=== PATIENT | female | born 1975 | race Caucasian/White ===

== ENCOUNTER → 2017-03-23 | Outpatient (CLI) | payer MEDICARE, OTHER ==
--- NOTE | 2017-03-23 13:41 | XR ---
EXAMINATION TYPE: XR Hip Complete LT DATE OF EXAM: 03/23/2017 1:17 PM COMPARISON: NONE HISTORY: Left hip pain TECHNIQUE: 2 views submitted FINDINGS: There is no evidence of erosive change or acute fracture. Mild hypertrophic change of the acetabulum results in mild narrowing of the superior compartment of t he hip. Diffuse osteopenia noted. IMPRESSION: 1. No evidence of acute fracture or dislocation. 2. Post arthritic changes. Correlate for femoral acetabular impingement.
== END ==
LOC: RADXRMAIN 12:54
PROVIDERS: ATTEND Family Medicine
DX: M16.12 Unilateral primary osteoarthritis, left hip (principal)
CPT/HCPCS: 73502

== ENCOUNTER → 2017-04-13 | Outpatient (CLI) | payer MEDICARE, OTHER ==
--- NOTE | 2017-04-13 16:31 | BD ---
EXAMINATION TYPE: MG DEXA axial skeleton. DATE OF EXAM: 04/13/2017 COMPARISON: NONE CLINICAL HISTORY: Osteopenia per order. Height: 5 FT 6 1/4 IN Weight: 137 FRAX RISK QUESTIONS: Alcohol (3 or more units per day): NO Family History (Parent hip fracture): NO Glucocorticoids (More than 3mos): NO (Ex: prednisone, prednisolone, methylprednisolone, dexamethasone, and hydrocortisone). History of Fracture in Adulthood: YES Secondary Osteoporosis: 1. Type 1 Diabetes: NO 2. Hyperthyroidism: NO 3. Menopause before 45: NO 4. Malnutrition: NO 5. 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 Bone mineral density as measured about the Lumbar spine is: ----- L1-L4(G/cm2): 1.151 T Score Values are as follows: ----- L2: -0.2 ----- L3: 0.0 ----- L4: -0.7 ----- L1-L4: -0.2 BASELINE Bone mineral density about the R hip (g/cm2): 0.582 Bone mineral density about the L hip (g/cm2): 0.638 T Score values are as follows: -----R Neck: -2.5 -----L Neck: -2.1 -----R Total: -1.9 -----L Total: -2.4 BASELINE IMPRESSION: Osteopenia in the bilateral hips. (T Score between -2.5 and -1 as noted by T score values)There is sl ightly increased risk of fracture and the patient may be considered for treatment. Re-Screen 2-5 year s. NOTE: T-SCORE=SD OF THE YOUNG ADULT MEAN.
== END | disposition home or self-care (01) ==
LOC: RADBDWWP 07:36
PROVIDERS: ATTEND Family Medicine
DX: M85.852 Other specified disorders of bone density and structure, left thigh (principal); M85.851 Other specified disorders of bone density and structure, right thigh
CPT/HCPCS: 77080

== ENCOUNTER → 2019-03-05 | Outpatient (CLI) | payer MEDICARE, OTHER ==
--- NOTE | 2019-03-05 16:10 | CT ---
EXAMINATION TYPE: CT brain wo con DATE OF EXAM: 03/05/2019 COMPARISON: CT brain September 22, 2016 HISTORY: headaches, dizziness CT DLP: 1168 mGycm. Automated Exposure Control for Dose Reduction was Utilized. TECHNIQUE: CT scan of the head is performed without contrast. FINDINGS: There is redemonstration of left parietal walker hole with TEACHING ASSOCIATE shunt catheter terminating ne ar level of foramen of Monro. No acute intracranial hemorrhage or midline shift is seen. Area of ence phalomalacia high right frontal parietal region is again seen. Ventricular size is stable without hyd rocephalus. Visualized sinuses are clear and the globes are intact bilaterally. IMPRESSION: No significant change from 2016 CT.
== END | disposition home or self-care (01) ==
LOC: RADCTMAIN 15:37
PROVIDERS: ATTEND Neurological Surgery
DX: G91.0 Communicating hydrocephalus (principal); R10.12 Left upper quadrant pain
CPT/HCPCS: 70450

== ENCOUNTER 2019-04-09 15:33 | Emergency (ER) | payer MEDICARE, OTHER ==
[2019-04-09 15:49] VITALS: RESP 18; TEMP 98.4
[2019-04-09] MEDS ORDERED: METOCLOPRAMIDE 5 MG/ML 2 ML VIAL IVP STA (16:27)
[2019-04-09] MEDS ORDERED: LORazepam 2 MG/ML INJ IV STA (16:28)
--- NOTE | 2019-04-09 16:32 | ED ---
General Adult HPI - General Chief complaint: Nausea/Vomiting/Diarrhea Stated complaint: shunt problem Time Seen by Provider: 04/09/19 16:18 Source: patient, family, RN notes reviewed Mode of arrival: ambulatory Limitations: no limitations - History of Present Illness Initial comments: Patient is a pleasant 44-year-old female presenting to the emergency department with complaints of nausea. Onset of symptoms was yesterday. Patient has had some headaches however they are mild and are mild at this time. Patient is concerned there could be a problem with her shunt. Patient states she has had near vomiting however not actually vomited. Patient has some nausea and upset stomach. Not abdominal pain. Patient states headache is very mild and more discomfort than true pain. Patient states she does have some blurry vision. Patient states symptoms are similar to previous problems she has had with her shunt, last was placed 1 year ago. Patient has previously had her care at [facility] however does have a new neurosurgeon at [facility]. He has seen her however not done surgery on her previously. Patient states she does have history of hydrocephalus from premature . - Related Data Home Medications Medication Instructions Recorded Confirmed Acyclovir [Zovirax] 400 mg PO TID 01/20/15 04/09/19 ALPRAZolam [Xanax] 2 mg PO HS 04/09/19 04/09/19 Butalb/APAP/Caff 50-325-40Mg 1 tab PO TID PRN 04/09/19 04/09/19 [Fioricet 50-325-40] Ondansetron HCl [Zofran] 4 mg PO Q8H PRN 04/09/19 04/09/19 Allergies Allergy/AdvReac Type Severity Reaction Status Date / Time No Known Allergies Allergy Verified 04/09/19 16:20 Review of Systems ROS Statement: Those systems with pertinent positive or pertinent negative responses have been documented in the HPI. ROS Other: All systems not noted in ROS Statement are negative. Constitutional: Denies: fever, chills Eyes: Reports: as per HPI. Denies: eye pain ENT: Denies: ear pain Respiratory: Denies: cough, dyspnea Cardiovascular: Denies: chest pain Endocrine: Denies: fatigue Gastrointestinal: Reports: nausea. Denies: abdominal pain, vomiting Genitourinary: Denies: urgency Musculoskeletal: Denies: back pain Skin: Denies: rash Neurological: Reports: as per HPI. Denies: weakness, confusion Psychiatric: Reports: anxiety Past Medical History Past Medical History: CVA/TIA, Memory Impairment, Seizure Disorder Additional Past Medical History / Comment(s): see Dr Broussard H&P for cardiac history. 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 In 2000 she had another surgery involving the shunt and a vessel was nicked causing left side stroke symptoms. She has had many shunt surgeries Past Anesthesia/Blood Transfusion Reactions: Postoperative Nausea & Vomiting (PONV) Past Psychological History: Anxiety, Depression, Panic Disorder Smoking Status: Former smoker Past Alcohol Use History: None Reported Past Drug Use History: None Reported General Exam Limitations: no limitations General appearance: alert, in no apparent distress Head exam: Present: atraumatic, normocephalic Eye exam: Present: normal appearance, PERRL, EOMI. Absent: nystagmus Expanded Posterior chamber: Normal Inspection: Bilateral ENT exam: Present: normal oropharynx Neck exam: Present: normal inspection. Absent: meningismus Respiratory exam: Present: normal lung sounds bilaterally Cardiovascular Exam: Present: regular rate, normal rhythm GI/Abdominal exam: Present: soft. Absent: tenderness Neurological exam: Present: alert, oriented X3, CN II-XII intact (Except for mild weakness with left shoulder shrug) Expanded Neurological exam: Present: other (Patient states all weakness notices on exam are chronic and unchanged.) Speech: Present: fluid speech Cranial nerves: EOM's Intact: Normal, Facial Sensation: Normal Sensory exam: Upper Extremity Light Touch: Normal, Lower Extremity Light Touch: Normal Motor strength exam: RUE: 5, LUE: 4, RLE: 5, LLE: 4 Eye Response: (4) open spontaneously Motor Response: (6) obeys commands Verbal Response: (5) oriented Psychiatric exam: Present: normal affect, normal mood Skin exam: Present: normal color Course Vital Signs 04/09/19 04/09/19 04/09/19 15:45 17:07 17:51 Temperature 98.4 F Pulse Rate 82 74 78 Respiratory 18 18 18 Rate Blood Pressure 124/82 102/70 102/60 O2 Sat by Pulse 98 97 100 Oximetry Medical Decision Making - Lab Data Result diagrams: 04/09/19 16:36 04/09/19 16:36 Lab Results 04/09/19 04/09/19 04/09/19 Range/Units 16:36 16:36 16:36 WBC 5.3 (3.8-10.6) k/uL RBC 4.85 (3.80-5.40) m/uL Hgb 14.8 (11.4-16.0) gm/dL Hct 45.9 (34.0-46.0) % MCV 94.7 (80.0-100.0) fL MCH 30.4 (25.0-35.0) pg MCHC 32.2 (31.0-37.0) g/dL RDW 14.6 (11.5-15.5) % Plt Count 231 (150-450) k/uL Neutrophils % 60 % Lymphocytes % 29 % Monocytes % 6 % Eosinophils % 3 % Basophils % 1 % Neutrophils # 3.1 (1.3-7.7) k/uL Lymphocytes # 1.5 (1.0-4.8) k/uL Monocytes # 0.3 (0-1.0) k/uL Eosinophils # 0.2 (0-0.7) k/uL Basophils # 0.0 (0-0.2) k/uL PT 9.9 (9.0-12.0) sec INR 0.9 (<1.2) APTT 25.3 (22.0-30.0) sec Sodium 143 (137-145) mmol/L Potassium 3.7 (3.5-5.1) mmol/L Chloride 108 H (98-107) mmol/L Carbon Dioxide 26 (22-30) mmol/L Anion Gap 9 mmol/L BUN 5 L (7-17) mg/dL Creatinine 0.62 (0.52-1.04) mg/dL Est GFR (CKD-EPI)AfAm >90 (>60 ml/min/1.73 sqM) Est GFR (CKD-EPI)NonAf >90 (>60 ml/min/1.73 sqM) Glucose 113 H (74-99) mg/dL Calcium 9.6 (8.4-10.2) mg/dL Total Bilirubin 0.6 (0.2-1.3) mg/dL AST 18 (14-36) U/L ALT 13 (9-52) U/L Alkaline Phosphatase 57 (38-126) U/L Total Protein 7.3 (6.3-8.2) g/dL Albumin 4.4 (3.5-5.0) g/dL Amylase 42 (30-110) U/L Lipase 82 (23-300) U/L - Radiology Data Radiology results: report reviewed (Computed tomography scan of the brain shows old encephalomalacia right parietal lobe. Unchanged. No hydrocephalus. No acute intercranial abnormality.), image reviewed (Chest x-ray shows normal chest. Shunt noted without twisting. KUB shows nonacute abdomen. Skull x-ray reveals no acute process) Disposition Clinical Impression: Nausea Disposition: HOME SELF-CARE Condition: Stable Instructions (If sedation given, give patient instructions): Acute Nausea and Vomiting (ED) Additional Instructions: Patient reevaluated and resting comfortably in bed. Patient states she feels much better than when she arrived. Patient and family updated on results. Kristopher pereyra requests discharge home. Patient is advised close follow-up with her neurosurgeon. She states she arty has an appointment scheduled for Sunday. Patient is advised to follow-up sooner if symptoms worsen or return. Is patient prescribed a controlled substance at d/c from ED?: No Referrals: Yaniv Mac DO [Primary Care Provider] - 1-2 days Time of Disposition: 18:34
[2019-04-09 16:49] LABS: Basophils % (A) 1 %; Eosinophils # (A) 0.2 k/uL (0-0.7); Eosinophils % (A) 3 %; HCT 45.9 % (34.0-46.0); HGB 14.8 gm/dL (11.4-16.0); Lymphocytes # (A) 1.5 k/uL (1.0-4.8); Lymphocytes % (A) 29 %; MCH 30.4 pg (25.0-35.0); MCHC 32.2 g/dL (31.0-37.0); MCV 94.7 fL (80.0-100.0); Mean Platelet Volume 8.1; Monocytes # (A) 0.3 k/uL (0-1.0); Monocytes % (A) 6 %; Neutrophils # (A) 3.1 k/uL (1.3-7.7); Neutrophils % (A) 60 %; Platelet Count 231 k/uL (150-450); RBC 4.85 m/uL (3.80-5.40); RDW 14.6 % (11.5-15.5); WBC 5.3 k/uL (3.8-10.6)
[2019-04-09 16:56] LABS: INR 0.9 (<1.2); Partial Thromboplastin Time 25.3 sec (22.0-30.0); Prothrombin Time 9.9 sec (9.0-12.0)
[2019-04-09 16:58] LABS: ALT 13 U/L (9-52); AST 18 U/L (14-36); Albumin 4.4 g/dL (3.5-5.0); Alkaline Phosphatase 57 U/L (38-126); Amylase 42 U/L (30-110); Anion Gap 9 mmol/L; Blood Urea Nitrogen 5 mg/dL (7-17); Calcium 9.6 mg/dL (8.4-10.2); Carbon Dioxide 26 mmol/L (22-30); Chloride 108 mmol/L (98-107); Glucose 113 mg/dL (74-99); Lipase 82 U/L (23-300); Potassium 3.7 mmol/L (3.5-5.1); Sodium 143 mmol/L (137-145); Total Bilirubin 0.6 mg/dL (0.2-1.3); Total Protein 7.3 g/dL (6.3-8.2)
--- NOTE | 2019-04-09 17:57 | CT ---
EXAMINATION TYPE: CT brain wo con DATE OF EXAM: 04/09/2019 COMPARISON: 03/05/2019 HISTORY: Nausea. Evaluation of shunt. CT DLP: 1164.4 mGycm. Automated Exposure Control for Dose Reduction was Utilized. TECHNIQUE: CT scan of the head is performed without contrast. FINDINGS: There is left side ventricular shunt catheter with the tip in the midline. There is no hydr ocephalus. There is large area of hypodensity in the white matter right parietal lobe consistent with old infarct. There is no midline shift. There is no sign of intracranial hemorrhage. The calvarium i s intact. There is apparent old right side craniotomy defect. IMPRESSION: Old encephalomalacia right parietal lobe white matter and christian matter unchanged. No acute intracrania l abnormality. No hydrocephalus.
--- NOTE | 2019-04-09 18:03 | XR ---
EXAMINATION TYPE: XR chest 1V DATE OF EXAM: 04/09/2019 COMPARISON: NONE HISTORY: Abdominal pain TECHNIQUE: Single frontal view of the chest is obtained. FINDINGS: Heart and mediastinum are normal. Lungs are clear. Costophrenic angles are clear. There is ventricular peritoneal shunt catheter noted on the left side. IMPRESSION: Normal chest
--- NOTE | 2019-04-09 18:04 | XR ---
EXAMINATION TYPE: XR KUB DATE OF EXAM: 04/09/2019 COMPARISON: NONE HISTORY: Abdominal pain TECHNIQUE: 2 views upright FINDINGS: There is no sign of intestinal obstruction or pneumoperitoneum. Fecal pattern is normal. Th ere is IUD noted. There are clips from cholecystectomy. There is ventricular peritoneal shunt cathete r noted. There are no pathologic calcifications over the kidneys. Lung bases are clear. IMPRESSION: Nonacute abdomen.
[2019-04-09 18:54] VITALS: BP 102/70; PULSE 72
== END 2019-04-09 18:52 | disposition home or self-care (01) ==
LOC: EC 15:33
DX: R11.0 Nausea (principal); R51 Headache; F41.0 Panic disorder [episodic paroxysmal anxiety]; F32.9 Major depressive disorder, single episode, unspecified; Z79.899 Other long term (current) drug therapy; Z86.73 Personal history of transient ischemic attack (TIA), and cerebral infarction without residual deficits; Z87.891 Personal history of nicotine dependence; Z98.2 Presence of cerebrospinal fluid drainage device
CPT/HCPCS: 36415; 80053; 82150; 83690; 85025; 85610; 85730; 70250; 71045; 74018; 70450; 99284; 96374; 96375; J2060; J2765

== ENCOUNTER 2019-04-22 16:25 | Emergency (ER) | payer MEDICARE, OTHER ==
[2019-04-22 16:43] VITALS: BP 121/86; PULSE 83; RESP 16; TEMP 98.8
--- NOTE | 2019-04-22 17:49 | XR ---
EXAMINATION TYPE: XR KUB DATE OF EXAM: 04/22/2019 COMPARISON: 04/09/2019 HISTORY: Constipation TECHNIQUE: 2 views upright FINDINGS: There is no sign of intestinal obstruction or pneumoperitoneum. There is ventricular perito luis shunt catheter noted. There is IUD noted. Fecal pattern is normal. There are no pathologic calci fications over the kidneys. There are clips from cholecystectomy. Lung bases are clear. IMPRESSION: Nonacute abdomen. No adverse change compared to old exam. No sign of constipation.
--- NOTE | 2019-04-22 18:18 | ED ---
General Adult HPI - General Chief complaint: Abdominal Pain Stated complaint: abd pain/constipation/nausea Time Seen by Provider: 04/22/19 17:13 Source: patient, RN notes reviewed, old records reviewed Mode of arrival: ambulatory Limitations: no limitations - History of Present Illness Initial comments: 44-year-old female presents for evaluation of nausea and abdominal pain. Patient has dull with nausea for many years. She has history of previous SHIPPING CLERK shunt. She's had recent evaluation by neurosurgery. She is complaining of abdominal pain and nausea which is chronic in nature. She was seen by her certified medical technician assistant 3 days ago, prescribed Colace, MiraLAX and magnesium citrate. She's had liquid stool since this time. She states her last formed bowel movement was several weeks ago. Denies fever or chills. Patient is predominantly left upper quadrant. - Related Data Home Medications Medication Instructions Recorded Confirmed Acyclovir [Zovirax] 400 mg PO TID 01/20/15 04/22/19 ALPRAZolam [Xanax] 2 mg PO HS 04/09/19 04/22/19 Ondansetron HCl [Zofran] 4 mg PO Q8H PRN 04/09/19 04/22/19 Docusate [Colace] 100 mg PO DAILY 04/22/19 04/22/19 Magnesium Citrate [Citrate of 5 ml PO DAILY 04/22/19 04/22/19 Magnesia] Polyethylene Glycol 3350 [Miralax] 17 gm PO DAILY 04/22/19 04/22/19 Previous Rx's Medication Instructions Recorded Metoclopramide [Reglan] 5 mg PO TID PRN #21 tab 04/22/19 Allergies Allergy/AdvReac Type Severity Reaction Status Date / Time No Known Allergies Allergy Verified 04/22/19 17:12 Review of Systems ROS Statement: Those systems with pertinent positive or pertinent negative responses have been documented in the HPI. ROS Other: All systems not noted in ROS Statement are negative. Past Medical History Past Medical History: CVA/TIA, Memory Impairment, Seizure Disorder Additional Past Medical History / Comment(s): see Dr Broussard H&P for cardiac history. Last seizure was 2003. chronic constipation. 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 In 2000 she had another surgery involving the shunt and a vessel was nicked causing left side stroke symptoms. She has had many shunt surgeries Past Anesthesia/Blood Transfusion Reactions: Postoperative Nausea & Vomiting (PONV) Past Psychological History: Anxiety, Depression, Panic Disorder Smoking Status: Former smoker Past Alcohol Use History: None Reported Past Drug Use History: None Reported General Exam Limitations: no limitations General appearance: alert, in no apparent distress Head exam: Present: atraumatic, normocephalic Eye exam: Present: normal appearance ENT exam: Present: normal exam, mucous membranes moist Neck exam: Present: normal inspection. Absent: tenderness, meningismus Respiratory exam: Present: normal lung sounds bilaterally. Absent: respiratory distress, wheezes Cardiovascular Exam: Present: regular rate, normal rhythm GI/Abdominal exam: Present: soft. Absent: distended, tenderness, guarding, rebound, rigid Extremities exam: Present: normal inspection, normal capillary refill. Absent: pedal edema Neurological exam: Present: alert, oriented X3 Psychiatric exam: Present: normal affect, normal mood Skin exam: Present: warm, dry, intact. Absent: cyanosis, diaphoretic Course Vital Signs 04/22/19 16:39 Temperature 98.8 F Pulse Rate 83 Respiratory 16 Rate Blood Pressure 121/86 O2 Sat by Pulse 97 Oximetry Medical Decision Making - Medical Decision Making X-ray obtained, there is no constipation, no obstruction. Patient has nonsurgical abdomen. She does have good outpatient follow-up with gastroenterology. She has a computed tomography scan of the abdomen scheduled. She will maintain this appointment. Disposition Clinical Impression: Nausea, Abdominal pain Disposition: HOME SELF-CARE Condition: Good Instructions (If sedation given, give patient instructions): Abdominal Pain (ED) Prescriptions: Metoclopramide [Reglan] 5 mg PO TID PRN #21 tab PRN Reason: Nausea Is patient prescribed a controlled substance at d/c from ED?: No Referrals: Yaniv Mac DO [Primary Care Provider] - 1-2 days Time of Disposition: 18:17
== END 2019-04-22 18:56 | disposition home or self-care (01) ==
LOC: EC 16:25
DX: R10.9 Unspecified abdominal pain (principal); R11.0 Nausea; F41.0 Panic disorder [episodic paroxysmal anxiety]; Z79.899 Other long term (current) drug therapy; Z87.891 Personal history of nicotine dependence; Z98.2 Presence of cerebrospinal fluid drainage device; Z86.73 Personal history of transient ischemic attack (TIA), and cerebral infarction without residual deficits
CPT/HCPCS: 74018; 99284

== ENCOUNTER → 2019-07-17 | Outpatient (CLI) | payer MEDICARE, OTHER ==
--- NOTE | 2019-07-17 14:42 | US ---
EXAMINATION TYPE: US pelvis complete transvag DATE OF EXAM: 07/17/2019 COMPARISON: NONE CLINICAL HISTORY: R10.2 Pelvic pain, Z97.5 IUD placement. pt has left sided stroke and foot palsy TECHNIQUE: . Transabdominal sonographic images of the pelvis were acquired. Transvaginal sonographi c images were medically necessary to better assess the following anatomy: adnexa Date of LMP: 5 years ago pt has Mirena EXAM MEASUREMENTS: Uterus: 7.7 x 3.5 x 5.1 cm Endometrial Stripe: 0.2 cm Right Ovary: 3.1 x 2.7 x 3.0 cm Left Ovary: 2.2 x x1.6 x 1.3 cm 1. Uterus: nabothian cyst , IUD in mid upper uterus 2. Endometrium: wnl 3. Right Ovary: large cyst 2.5 x 2.3 x 3.1 cm can not see ovary separate 4. Left Ovary: wnl . 5. Bilateral Adnexa: rt cyst 6. Posterior cul-de-sac: wnl Anteverted uterus. IUD fell satisfactory in position. Incidental nabothian cyst in cervix. No free fl uid in pelvic cul-de-sac. There is 3.1 cm right ovarian cystic lesion which is not completely anechoic with increased through t ransmission and imperceptible rosario. It is more anechoic on transabdominal investigation with possibl e thin septa or dependent debris. IMPRESSION: Satisfactory positioning of metallic IUD. Nonsimple cyst right ovary, consider ultrasound follow-up in 6 weeks' time to reassess.
== END | disposition home or self-care (01) ==
LOC: RADUSWWP 10:51
PROVIDERS: ATTEND Obstetrics & Gynecology
DX: N83.291 Other ovarian cyst, right side (principal); Z97.5 Presence of (intrauterine) contraceptive device
CPT/HCPCS: 76830; 76856

== ENCOUNTER → 2019-09-11 | Outpatient (CLI) | payer MEDICARE, OTHER ==
[2019-09-11 15:16] LABS: Basophils # (A) 0.1 k/uL (0-0.2); Basophils % (A) 1 %; Eosinophils # (A) 0.2 k/uL (0-0.7); Eosinophils % (A) 3 %; HGB 14.6 gm/dL (11.4-16.0); Lymphocytes % (A) 29 %; MCH 30.9 pg (25.0-35.0); MCHC 31.7 g/dL (31.0-37.0); MCV 97.7 fL (80.0-100.0); Mean Platelet Volume 7.5; Monocytes # (A) 0.5 k/uL (0-1.0); Monocytes % (A) 7 %; Neutrophils % (A) 58 %; Platelet Count 223 k/uL (150-450); RBC 4.71 m/uL (3.80-5.40); RDW 12.6 % (11.5-15.5); WBC 6.9 k/uL (3.8-10.6)
[2019-09-11 15:29] LABS: African American GFR (CKD) >90 (>60 ml/min/1.73 sqM); Anion Gap 8 mmol/L; Blood Urea Nitrogen 7 mg/dL (7-17); Calcium 9.2 mg/dL (8.4-10.2); Carbon Dioxide 25 mmol/L (22-30); Chloride 108 mmol/L (98-107); Glucose 95 mg/dL (74-99); Sodium 141 mmol/L (137-145)
== END | disposition home or self-care (01) ==
LOC: LABPAT 14:05
PROVIDERS: ATTEND Obstetrics & Gynecology
DX: Z01.812 Encounter for preprocedural laboratory examination (principal)
CPT/HCPCS: 36415; 80048; 85025

== ENCOUNTER 2019-09-15 05:45 | Observation (INO) | payer MEDICARE, OTHER ==
[2019-09-15] MEDS ORDERED: HYDROmorphone 0.5 MG/0.5 ML SYRINGE IVP PRN (05:47)
[2019-09-15] MEDS ORDERED: DEXAMETHASONE SOD PHOSPHATE 10 MG/ML 1 ML VIAL IV ONE (05:47)
[2019-09-15] MEDS ORDERED: METOCLOPRAMIDE 5 MG/ML 2 ML VIAL IVP PRN ×2 (05:47→09:36)
[2019-09-15] MEDS ORDERED: ONDANSETRON 4 MG/2 ML VIAL IVP ONE (05:47)
[2019-09-15] MEDS ORDERED: LIDOCAINE 1% 20 ML VIAL (10MG/ML) FOR IV START INTRADERMA PRN (05:47)
[2019-09-15] MEDS ORDERED: LACTATED RINGERS 1,000 ML IV SCH (05:47)
--- NOTE | 2019-09-15 06:53 | P.HPOB ---
History of Present Illness H&P Date: 09/15/19 Chief Complaint: Menorrhagia and pelvic pain 44-year-old presents for total laparoscopic hysterectomy with da Janae and diagnostic cystoscopy. Review of Systems All systems: negative Constitutional: Denies chills, Denies fever Eyes: denies blurred vision, denies pain Ears, nose, mouth and throat: Denies headache, Denies sore throat Cardiovascular: Denies chest pain, Denies shortness of breath Respiratory: Denies cough Gastrointestinal: Denies abdominal pain, Denies diarrhea, Denies nausea, Denies vomiting Genitourinary: Denies dysuria, Denies hematuria Musculoskeletal: Denies myalgias Integumentary: Denies pruritus, Denies rash Neurological: Denies numbness, Denies weakness Psychiatric: Denies anxiety, Denies depression Endocrine: Denies fatigue, Denies weight change Past Medical History Past Medical History: CVA/TIA (She had a stroke after placement of her shunt), Memory Impairment, Seizure Disorder (Last seizure was 2003) History of Any Multi-Drug Resistant Organisms: None Reported, Other MDRO Past Surgical History: Section, Cholecystectomy, Tubal Ligation Additional Past Surgical History / Comment(s): 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 In 2000 she had another surgery involving the shunt and a vessel was nicked causing left side stroke symptoms. She has had many shunt surgeries Past Anesthesia/Blood Transfusion Reactions: Postoperative Nausea & Vomiting (PONV) Additional Past Anesthesia/Blood Transfusion Reaction / Comment(s): no hx blood transfusion Smoking Status: Former smoker Past Alcohol Use History: None Reported Past Drug Use History: None Reported - Past Family History Mother Family Medical History: Cancer Additional Family Medical History / Comment(s): breast CA Medications and Allergies Home Medications Medication Instructions Recorded Confirmed Type Acyclovir [Zovirax] 400 mg PO TID 01/20/15 09/15/19 History ALPRAZolam [Xanax] 2 mg PO TID PRN 04/09/19 09/15/19 History Ondansetron HCl [Zofran] 4 mg PO Q8H PRN 04/09/19 09/15/19 History Docusate [Colace] 100 mg PO DAILY PRN 04/22/19 09/15/19 History Metoclopramide [Reglan] 5 mg PO TID PRN #21 tab 04/22/19 09/15/19 Rx Polyethylene Glycol 3350 [Miralax] 17 gm PO DAILY 04/22/19 09/15/19 History Ibuprofen 800 mg PO TID PRN 09/11/19 09/15/19 History Allergies Allergy/AdvReac Type Severity Reaction Status Date / Time latex Allergy aragon skin Verified 09/15/19 06:31 Exam Osteopathic Statement: *. No significant issues noted on an osteopathic structural exam other than those noted in the History and Physical/Consult. Vital Signs Temp Pulse Resp BP Pulse Ox 09/15/19 06:30 98.4 F 78 15 109/79 97 Heart: Regular rate and rhythm Lungs: Clear to auscultation bilaterally Abdomen: Soft, nontender Extremities: Negative Homans sign; chronic weakness on the left side Assessment and Plan (1) Menorrhagia Current Visit: Yes Status: Acute Code(s): N92.0 - EXCESSIVE AND FREQUENT MENSTRUATION WITH REGULAR CYCLE SNOMED Code(s): 925535287 (2) Pelvic pain Current Visit: Yes Status: Acute Code(s): R10.2 - PELVIC AND PERINEAL PAIN SNOMED Code(s): 88972929 Plan: 1. Total laparoscopic hysterectomy with da Janae and diagnostic cystoscopy.
[2019-09-15] MEDS ORDERED: MIDAZOLAM 2 MG/2 ML VIAL IVP ONE (07:22)
[2019-09-15] MEDS: fentaNYL (PF) 50 MCG/ML 2 ML AMP IVP ONE ×3 (07:23→09:32)
[2019-09-15] MEDS ORDERED: LIDOCAINE 1% INJ 10MG/ML (20 ML MDV) ONE (07:35)
[2019-09-15] MEDS ORDERED: ROCURONIUM BROMIDE 10 MG/ML 10 ML VIAL IV ONE (07:35)
[2019-09-15] MEDS ORDERED: MIDAZOLAM 2 MG/2 ML VIAL ONE (07:35)
[2019-09-15] MEDS ORDERED: GLYCOPYRROLATE 0.2 MG/ML 2 ML VIAL ONE (07:35)
[2019-09-15] MEDS ORDERED: SUCCINYLCHOLINE CHLORIDE 100 MG/5 ML SYR IV ONE (07:35)
[2019-09-15] MEDS ORDERED: NEOSTIGMINE 1 MG/ML 10 ML VIAL ONE (07:35)
[2019-09-15] MEDS ORDERED: fentaNYL (PF) 50 MCG/ML 2 ML AMP ONE (07:35)
[2019-09-15] MEDS ORDERED: PROPOFOL 10 MG/ML 20 ML VIAL IV ONE (07:35)
[2019-09-15] MEDS ORDERED: KETOROLAC 30 MG/ML 1 ML VIAL ONE (07:35)
--- NOTE | 2019-09-15 09:02 | P.OP ---
Date of Procedure: 09/15/19 Preoperative Diagnosis: 1. menorrhagia 2. pelvic pain Postoperative Diagnosis: 1. menorrhagia 2. pelvic pain Procedure(s) Performed: Total abdominal hysterectomy with removal of IUD and aspiration of bilateral ovarian cysts Anesthesia: LYUDMILA Surgeon: Alice Dasilva Land Development Project Manager #1: Jose Armando Garrido Estimated Blood Loss (ml): 100 IV fluids (ml): 800 Urine output (ml): 25 Pathology: other (Uterus, cervix, with IUD in place) Condition: stable Disposition: PACU Operative Findings: Normal uterus, tubes, ovaries. Small follicular cysts on the left ovary small endometrioma cyst on the right ovary. The shunt was noted in the right side of the pelvis. Description of Procedure: Patient is taken the operating room where general anesthesia was obtained without difficult. She prepped and draped in normal sterile fashion dorsal supine position. Bravo catheter was placed. A Pfannenstiel skin incision was made the scalpel carried through to the underlying layer fascia with the Bovie. The fascia was incised in midline and carried bilaterally with the Seo scissors. The superior aspect of the fascial incision was grasped with [place] clamps elevated and the underlying rectus muscles dissected off with the Seo's. Attention then turned to the inferior aspect of the same incision which in a similar fashion was grasped tented up and the underlying rectus muscles dissected off with Mayojalyin. The rectus muscles were in the midline and the peritoneum was identified tented up and entered sharply with the Metzenbaums. The incision was extended superiorly and inferiorly with good visualization of the bladder. Of note, the colon was adhered to the peritoneum in the left anterior abdominal wall. This area was avoided. A self retraining retractor was placed and the bowels were packed away with moist laparotomy sponges. The cornual of the uterus were both grasped with Amanda clamps. The round ligament and the utero-ovarian ligament was clamped with Susana clamp cut and suture ligated with 0 Vicryl. The broad ligament was taken down using a Susana to clamp, then cut, then suture ligate with 0 Vicryl. The uterine artery was seen on both sides clamped cut and suture ligated. The bladder flap was then made using the Metzenbaums and pushed down with a moist laparotomy sponge. The uterosacral and cardinal ligaments were clamped cut and suture ligated with 0 Vicryl. Once the cervicovaginal junction was reached this area was clamped cut and suture ligated with 0 Vicryl Suture stitches were put on the corner for support. The cervix and uterus were amputated off the vaginal cuff. The vaginal cuff was reapproximated using 0 Vicryl in a running locked fashion. Hemostasis was assured. The pelvis was then copiously irrigated. Hemostasis was assured. The retractor and sponges were removed. The peritoneum and muscle together, careful to avoid the bowel, were reapproximated using 2-0 Vicryl. The fascia was reapproximated with 0 Vicryl in a running fashion. The subcutaneous tissues closed with 3-0 Vicryl in a running fashion. Skin was closed castro. Patient tolerated procedure well, sponge and instrument counts are correct 2. She was taken to recovery in stable condition.
[2019-09-15] MEDS ORDERED: Acetaminophen-Codeine 300-30mg TAB PO PRN (09:36)
[2019-09-15] MEDS ORDERED: ONDANSETRON 4 MG/2 ML VIAL IVP PRN (09:36)
[2019-09-15] MEDS ORDERED: ALPRAZolam 1 MG TAB PO PRN ×2 (09:36→22:38)
[2019-09-15] MEDS ORDERED: diphenhydrAMINE 50 MG/ML 1 ML VIAL IVP PRN (09:36)
[2019-09-15] MEDS ORDERED: DOCUSATE 100 MG CAP PO PRN (09:36)
[2019-09-15] MEDS ORDERED: ONDANSETRON 4 MG TAB PO PRN (09:36)
[2019-09-15] MEDS ORDERED: SIMETHICONE 80 MG CHEWABLE PO PRN (09:36)
[2019-09-15] MEDS ORDERED: METOCLOPRAMIDE 5 MG TAB PO PRN (09:36)
[2019-09-15] MEDS ORDERED: NALBUPHINE 10 MG/ML (1 ML AMP) IV PRN (10:35)
[2019-09-15] MEDS ORDERED: NALOXONE 0.4 MG/ML 1 ML VIAL IV PRN (10:35)
[2019-09-15 10:38] VITALS: BMI 21.8
[2019-09-15] MEDS: ACYCLOVIR 200 MG CAP PO SCH ×2 (16:04→22:18)
[2019-09-15] MEDS: LACTATED RINGERS 1,000 ML IV SCH ×2 (16:06→20:41)
[2019-09-15] MEDS: KETOROLAC 30 MG/ML 1 ML VIAL IVP PRN (18:32)
[2019-09-15] MEDS: KETOROLAC 30 MG/ML 1 ML VIAL IVP SCH (20:43)
[2019-09-15] MEDS ORDERED: ALPRAZolam 0.5 MG TAB PO PRN (22:12)
[2019-09-15] MEDS: SENNOSIDES-DOCUSATE SODIUM 1 EACH TAB PO SCH (22:18)
[2019-09-16] MEDS: KETOROLAC 30 MG/ML 1 ML VIAL IVP PRN ×2 (00:06→06:14)
[2019-09-16] MEDS: LACTATED RINGERS 1,000 ML IV SCH (04:26)
[2019-09-16 07:18] LABS: Basophils # (A) 0.1 k/uL (0-0.2); Basophils % (A) 1 %; Eosinophils # (A) 0.1 k/uL (0-0.7); Eosinophils % (A) 2 %; HCT 35.3 % (34.0-46.0); HGB 11.7 gm/dL (11.4-16.0); Lymphocytes # (A) 1.7 k/uL (1.0-4.8); Lymphocytes % (A) 22 %; MCH 32.9 pg (25.0-35.0); MCHC 33.2 g/dL (31.0-37.0); MCV 98.9 fL (80.0-100.0); Monocytes # (A) 0.6 k/uL (0-1.0); Monocytes % (A) 8 %; Neutrophils % (A) 66 %; Platelet Count 152 k/uL (150-450); RBC 3.57 m/uL (3.80-5.40); RDW 12.4 % (11.5-15.5); WBC 7.6 k/uL (3.8-10.6)
[2019-09-16] MEDS: Acetaminophen-Codeine 300-30mg TAB PO PRN ×3 (09:36→23:09)
[2019-09-16] MEDS: POLYETHYLENE GLYCOL 3350 17 GM POWD.PACK PO SCH (09:36)
[2019-09-16] MEDS: ACYCLOVIR 200 MG CAP PO SCH ×3 (09:36→22:30)
[2019-09-16] MEDS: SENNOSIDES-DOCUSATE SODIUM 1 EACH TAB PO SCH ×2 (09:37→21:10)
--- NOTE | 2019-09-16 13:28 | P.PN ---
Progress Note - Text Progress Note Date: 09/16/19 Postoperative day 1 status post section under spinal anesthesia, and i ntrathecal morphine given for postoperative analgesia, patient doing well, there is no anesthesia related complications, Patient had no headache, vital signs stable , Assessment and plan= postop day 1 status post , doing well there is no anesthesia related complication.
[2019-09-16] MEDS: IBUPROFEN 600 MG TAB PO PRN ×2 (13:54→20:00)
--- NOTE | 2019-09-17 09:13 | P.PN ---
Progress Note - Text Progress Note Date: 09/16/19 S/P [facility] POD #1 Patient seen and examined at bedside. Denies nausea, vomiting, chest pain, shor tness of breath or calf pain. Her pain is well-controlled. She is tolerating clears and passing flatus. She will be changed her regular diet. Vital signs stable Heart regular rate and rhythm Lungs: Clear to auscultation bilaterally Abdomen: Incision is clean, dry, intact with castro. No erythema or drainage noted. Extremities: Negative Homans sign Assessment 1. Status post total hysterectomy postoperative day #1 Plan 1. Advanced diet 2. Increase ambulation 3. Continue postoperative care
--- NOTE | 2019-09-17 09:14 | P.DS ---
Providers Date of admission: 09/16/19 00:13 Expected date of discharge: 09/17/19 Attending physician: Alice Dasilva Primary care physician: Yaniv Mac - Discharge Diagnosis(es) (1) Menorrhagia Current Visit: Yes Status: Resolved (2) Pelvic pain Current Visit: Yes Status: Resolved (3) S/P total abdominal hysterectomy Current Visit: Yes Status: Acute Hospital Course: Patient presented and underwent a total abdominal hysterectomy for pelvic pain and menorrhagia. She underwent this procedure without complication. Postoperatively her pain is well-controlled she is tolerating regular diet and passing flatus. She is ambulating voiding without difficulty. She denies nausea, vomiting, chest pain, shortness of breath or calf pain. She'll be discharged home postoperative day #2 in stable condition to follow-up with me in one week. Plan - Discharge Summary Discharge Rx Participant: Yes New Discharge Prescriptions: New Ibuprofen [Motrin] 600 mg PO QID PRN #30 tab PRN Reason: Pain Acetaminophen-Codeine 300-30mg [Tylenol w/codeine #3] 2 each PO Q6HR PRN #24 tab PRN Reason: Severe Pain No Action Acyclovir [Zovirax] 400 mg PO TID ALPRAZolam [Xanax] 2 mg PO TID PRN PRN Reason: Anxiety Ondansetron HCl [Zofran] 4 mg PO Q8H PRN PRN Reason: Nausea And Vomiting Polyethylene Glycol 3350 [Miralax] 17 gm PO DAILY Docusate [Colace] 100 mg PO DAILY PRN PRN Reason: Constipation Metoclopramide [Reglan] 5 mg PO TID PRN #21 tab PRN Reason: Nausea Ibuprofen 800 mg PO TID PRN PRN Reason: Pain Discharge Medication List Acyclovir [Zovirax] 400 mg PO TID 01/20/15 [History] ALPRAZolam [Xanax] 2 mg PO TID PRN 04/09/19 [History] Ondansetron HCl [Zofran] 4 mg PO Q8H PRN 04/09/19 [History] Docusate [Colace] 100 mg PO DAILY PRN 04/22/19 [History] Metoclopramide [Reglan] 5 mg PO TID PRN #21 tab 04/22/19 [Rx] Polyethylene Glycol 3350 [Miralax] 17 gm PO DAILY 04/22/19 [History] Ibuprofen 800 mg PO TID PRN 09/11/19 [History] Acetaminophen-Codeine 300-30mg [Tylenol w/codeine #3] 2 each PO Q6HR PRN #24 tab 09/17/19 [Rx] Ibuprofen [Motrin] 600 mg PO QID PRN #30 tab 09/17/19 [Rx] Follow up Appointment(s)/Referral(s): Alice Dasilva DO [Doctor of Osteopathic Medicine] - 1 Week Discharge Disposition: HOME SELF-CARE
[2019-09-17] MEDS: SENNOSIDES-DOCUSATE SODIUM 1 EACH TAB PO SCH (09:25)
[2019-09-17] MEDS: IBUPROFEN 600 MG TAB PO PRN (09:25)
[2019-09-17] MEDS: ACYCLOVIR 200 MG CAP PO SCH (09:25)
[2019-09-17] MEDS: POLYETHYLENE GLYCOL 3350 17 GM POWD.PACK PO SCH (09:26)
[2019-09-17 09:32] VITALS: RESP 18
[2019-09-17] MEDS: Acetaminophen-Codeine 300-30mg TAB PO PRN (13:00)
[2019-09-17 16:28] VITALS: BP 98/69; PULSE 81; TEMP 98.1
== END 2019-09-17 16:31 | disposition home or self-care (01) ==
LOC: OR 05:45 → 4FBP 08:52 → OR 09-16 00:40
PROVIDERS: ADMIT Obstetrics & Gynecology; ATTEND Obstetrics & Gynecology
DX: N92.0 Excessive and frequent menstruation with regular cycle (principal); R10.2 Pelvic and perineal pain; N80.0 Endometriosis of uterus; N83.201 Unspecified ovarian cyst, right side; N83.02 Follicular cyst of left ovary; N80.9 Endometriosis, unspecified; F39 Unspecified mood [affective] disorder; R41.3 Other amnesia; Z97.5 Presence of (intrauterine) contraceptive device; Z86.73 Personal history of transient ischemic attack (TIA), and cerebral infarction without residual deficits; Z90.49 Acquired absence of other specified parts of digestive tract; Z86.69 Personal history of other diseases of the nervous system and sense organs; Z98.2 Presence of cerebrospinal fluid drainage device; Z87.891 Personal history of nicotine dependence; Z79.899 Other long term (current) drug therapy; Z79.1 Long term (current) use of non-steroidal anti-inflammatories (NSAID); Z91.040 Latex allergy status; Z80.3 Family history of malignant neoplasm of breast
CPT/HCPCS: 58570; 58301; 58999; 81025; 85025; 88307; G0378 ×2; J2250; J1200; J1100; J2710; J0690; J2405; J2001; J3010; J1885 ×2; J0330; J2704; 86850; 86900; 86901; 93005

== ENCOUNTER → 2019-10-01 | Outpatient (CLI) | payer MEDICARE, OTHER ==
--- NOTE | 2019-10-03 08:13 | MM ---
Reason for exam: clinical finding. Last mammogram was performed 3 years and 2 months ago. History: Patient has history of other cancer at age 20. Family history of breast cancer in mother at age 40. Indicated problem(s): lump or thickening in the right breast. Physical Findings: Nurse did not find any significant physical abnormalities on exam. MG Diagnostic Mammo w CAD CARMEN Bilateral CC and MLO view(s) were taken. ML, spot compression CC, and spot compression MLO view(s) were taken of the right breast. Prior study comparison: July 20, 2016, bilateral MG 3d screening mammo w/cad. The breast tissue is extremely dense which could obscure a lesion on mammography. Finding: There is a questionable obscured mass in the upper quadrant, anterior position of the right breast. There is a chronic nodularity in the right breast quesion in size. Asymmetric breast tissue in the right breast. These results were verbally communicated with the patient and result sheet given to the patient on 10/01/19. ASSESSMENT: Incomplete: need additional imaging evaluation, BI-RAD 0 RECOMMENDATION: Ultrasound of the right breast. upper outer quadrant
--- NOTE | 2019-10-03 08:14 | USB ---
Reason for exam: additional evaluation requested from abnormal screening. History: Patient has history of other cancer at age 20. Family history of breast cancer in mother at age 40. US Breast Limited RT Right limited breast ultrasound including focal area of concern, retroareolar and axilla demonstrates a 0.4 x 0.3 x 0.4cm round, cystic, hypoechoic lesion at 9 o'clock. These results were verbally communicated with the patient and result sheet given to the patient on 10/01/19. ASSESSMENT: Probably benign, BI-RAD 3 RECOMMENDATION: Ultrasound of the right breast in 6 months.
== END | disposition home or self-care (01) ==
LOC: RADMAMWWP 13:30
PROVIDERS: ATTEND Obstetrics & Gynecology
DX: N63.10 Unspecified lump in the right breast, unspecified quadrant (principal); N63.20 Unspecified lump in the left breast, unspecified quadrant; R92.8 Other abnormal and inconclusive findings on diagnostic imaging of breast
CPT/HCPCS: 77066

== ENCOUNTER 2019-10-07 13:04 | Emergency (ER) | payer MEDICARE, OTHER ==
--- NOTE | 2019-10-07 13:52 | ED ---
General Adult HPI - General Chief complaint: Back Pain/Injury Stated complaint: Back Pain-Post Op Time Seen by Provider: 10/07/19 13:15 Source: patient, RN notes reviewed, old records reviewed Mode of arrival: ambulatory Limitations: no limitations - History of Present Illness Initial comments: This is a 44-year-old female who presents emergency Department with a past medical history significant for an intracranial shunt when she was young. Patient states recently she had a hysterectomy on September 15. Patient states she started developing left upper thoracic pain a few days ago and some shortness of breath when she told her OB this they decided to send him in to be ruled out for dialysis. Patient states she continues to be somewhat short of breath but the pain does not worsen or improve with deep breathing. Patient denies any increase in pain with movement. Patient denies any fever chills per patient denies any recent cough. Patient denies any abdominal pain except where the incision was. Patient denies any lightheadedness or dizziness. - Related Data Home Medications Medication Instructions Recorded Confirmed Acyclovir [Zovirax] 400 mg PO TID 01/20/15 10/07/19 ALPRAZolam [Xanax] 1 mg PO HS PRN 04/09/19 10/07/19 Ibuprofen 800 mg PO TID PRN 09/11/19 10/07/19 guaiFENesin SYRUP 100MG/5ML 200 mg PO Q6H PRN 10/07/19 10/07/19 [Robitussin] Allergies Allergy/AdvReac Type Severity Reaction Status Date / Time latex Allergy aragon skin Verified 10/07/19 13:41 Review of Systems ROS Statement: Those systems with pertinent positive or pertinent negative responses have been documented in the HPI. ROS Other: All systems not noted in ROS Statement are negative. Past Medical History Past Medical History: CVA/TIA, Memory Impairment, Seizure Disorder Additional Past Medical History / Comment(s): see Dr Broussard H&P for cardiac history. Last seizure was 2003. chronic constipation. 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 In 2000 she had another surgery involving the shunt and a vessel was nicked causing left side stroke symptoms. She has had many shunt surgeries Past Anesthesia/Blood Transfusion Reactions: Postoperative Nausea & Vomiting (PONV) Past Psychological History: Anxiety, Depression, Panic Disorder Smoking Status: Former smoker General Exam - General Exam Comments Initial Comments: GENERAL: Patient is well-developed and well-nourished. Patient is nontoxic and well- hydrated and is in mild distress. ENT: Neck is soft and supple. No significant lymphadenopathy is noted. Oropharynx is clear. Moist mucous membranes. Neck has full range of motion without eliciting any pain. EYES: The sclera were anicteric and conjunctiva were pink and moist. Extraocular movements were intact and pupils were equal round and reactive to light. Eyelids were unremarkable. PULMONARY: Unlabored respirations. Good breath sounds bilaterally. No audible rales rhonchi or wheezing was noted. CARDIOVASCULAR: There is a regular rate and rhythm without any murmurs gallops or rubs. ABDOMEN: Soft and nontender with normal bowel sounds. No palpable organomegaly was noted. There is no palpable pulsatile mass. SKIN: Skin is clear with no lesions or rashes and otherwise unremarkable. NEUROLOGIC: Patient is alert and oriented x3. Cranial nerves II through XII are grossly intact. Motor and sensory are also intact. Normal speech, volume and content. Symmetrical smile. MUSCULOSKELETAL: Normal extremities with adequate strength and full range of motion. No lower extremity swelling or edema. No calf tenderness. LYMPHATICS: No significant lymphadenopathy is noted PSYCHIATRIC: Normal psychiatric evaluation. Limitations: no limitations Course Vital Signs 10/07/19 10/07/19 10/07/19 13:16 13:34 14:51 Temperature 98 F Pulse Rate 88 68 Respiratory 16 20 18 Rate Blood Pressure 114/81 117/84 O2 Sat by Pulse 98 100 Oximetry Medical Decision Making - Medical Decision Making EKG shows normal sinus rhythm at [address] interval 130 QRS is 76 QT interval 400 QTC is 422 per patient's EKG shows no ST segment elevation or depression or T wave abnormalities are noted. CT shows no PE or abnormality. - Lab Data Result diagrams: 10/07/19 14:04 10/07/19 14:04 Lab Results 10/07/19 10/07/19 10/07/19 Range/Units 13:57 14:04 14:04 WBC 7.6 (3.8-10.6) k/uL RBC 4.88 (3.80-5.40) m/uL Hgb 15.2 (11.4-16.0) gm/dL Hct 47.0 H (34.0-46.0) % MCV 96.4 (80.0-100.0) fL MCH 31.1 (25.0-35.0) pg MCHC 32.3 (31.0-37.0) g/dL RDW 12.8 (11.5-15.5) % Plt Count 282 (150-450) k/uL Neutrophils % 64 % Lymphocytes % 22 % Monocytes % 9 % Eosinophils % 4 % Basophils % 1 % Neutrophils # 4.8 (1.3-7.7) k/uL Lymphocytes # 1.6 (1.0-4.8) k/uL Monocytes # 0.7 (0-1.0) k/uL Eosinophils # 0.3 (0-0.7) k/uL Basophils # 0.0 (0-0.2) k/uL Sodium 141 (137-145) mmol/L Potassium 4.0 (3.5-5.1) mmol/L Chloride 106 (98-107) mmol/L Carbon Dioxide 24 (22-30) mmol/L Anion Gap 11 mmol/L BUN 8 (7-17) mg/dL Creatinine 0.61 (0.52-1.04) mg/dL Est GFR (CKD-EPI)AfAm >90 (>60 ml/min/1.73 sqM) Est GFR (CKD-EPI)NonAf >90 (>60 ml/min/1.73 sqM) Glucose 99 (74-99) mg/dL Calcium 9.8 (8.4-10.2) mg/dL Total Bilirubin 0.9 (0.2-1.3) mg/dL AST 34 (14-36) U/L ALT 38 (9-52) U/L Alkaline Phosphatase 69 (38-126) U/L Total Protein 7.8 (6.3-8.2) g/dL Albumin 4.6 (3.5-5.0) g/dL Urine Color Light Yellow Urine Appearance Cloudy H (Clear) Urine pH 5.0 (5.0-8.0) Ur Specific [place] 1.009 (1.001-1.035) Urine Protein Negative (Negative) Urine Glucose (UA) Negative (Negative) Urine Ketones Negative (Negative) Urine Blood Negative (Negative) Urine Nitrite Negative (Negative) Urine Bilirubin Negative (Negative) Urine Urobilinogen <2.0 (<2.0) mg/dL Ur Leukocyte Esterase Negative (Negative) Urine RBC <1 (0-5) /hpf Urine WBC 1 (0-5) /hpf Ur Squamous Epith Cells 6 H (0-4) /hpf Urine Bacteria Rare H (None) /hpf Urine Mucus Rare H (None) /hpf Disposition Clinical Impression: Acute thoracic back pain Disposition: HOME SELF-CARE Condition: Good Instructions (If sedation given, give patient instructions): Thoracic Pain (ED) Is patient prescribed a controlled substance at d/c from ED?: No Referrals: Yaniv Mac DO [Primary Care Provider] - 1-2 days Time of Disposition: 15:25
[2019-10-07 14:30] LABS: Basophils % (A) 1 %; Eosinophils # (A) 0.3 k/uL (0-0.7); Eosinophils % (A) 4 %; HGB 15.2 gm/dL (11.4-16.0); Lymphocytes # (A) 1.6 k/uL (1.0-4.8); Lymphocytes % (A) 22 %; MCH 31.1 pg (25.0-35.0); MCHC 32.3 g/dL (31.0-37.0); MCV 96.4 fL (80.0-100.0); Mean Platelet Volume 7.5; Monocytes # (A) 0.7 k/uL (0-1.0); Monocytes % (A) 9 %; Neutrophils # (A) 4.8 k/uL (1.3-7.7); Neutrophils % (A) 64 %; Platelet Count 282 k/uL (150-450); RBC 4.88 m/uL (3.80-5.40); RDW 12.8 % (11.5-15.5); WBC 7.6 k/uL (3.8-10.6)
[2019-10-07 14:35] LABS: Appearance,Urine Cloudy (Clear); Bacteria,Urine Rare /hpf; Bilirubin,Urine Negative (Negative); Blood,Urine Negative (Negative); Color,Urine Light Yellow; Glucose,Urine (UA) Negative (Negative); Ketones,Urine Negative (Negative); Leukocyte Esterase,Urine Negative (Negative); Mucus,Urine Rare /hpf; Nitrite,Urine Negative (Negative); Protein,Urine Negative (Negative); RBC,Urine <1 /hpf (0-5); Specific Gravity,Urine 1.009 (1.001-1.035); Squamous Epithelial Cell,Urine 6 /hpf (0-4); Urobilinogen,Urine <2.0 mg/dL (<2.0)
[2019-10-07 14:45] LABS: ALT 38 U/L (9-52); AST 34 U/L (14-36); African American GFR (CKD) >90 (>60 ml/min/1.73 sqM); Albumin 4.6 g/dL (3.5-5.0); Alkaline Phosphatase 69 U/L (38-126); Anion Gap 11 mmol/L; Blood Urea Nitrogen 8 mg/dL (7-17); Calcium 9.8 mg/dL (8.4-10.2); Carbon Dioxide 24 mmol/L (22-30); Chloride 106 mmol/L (98-107); Glucose 99 mg/dL (74-99); Non-African American GFR(CKD) >90 (>60 ml/min/1.73 sqM); Sodium 141 mmol/L (137-145); Total Bilirubin 0.9 mg/dL (0.2-1.3); Total Protein 7.8 g/dL (6.3-8.2)
--- NOTE | 2019-10-07 14:59 | CT ---
EXAMINATION TYPE: CT chest angio for PE DATE OF EXAM: 10/07/2019 COMPARISON: 10/13/2010 HISTORY: 44-year-old female Chest pain TECHNIQUE: Contiguous axial scanning of the chest performed with IV Contrast, patient injected with 1 00 mL of Isovue 370. Coronal/sagittal MIP reconstructions performed. CT DLP: 227.5 mGycm Automated exposure control for dose reduction was used. FINDINGS: Heart normal size with small basilar pericardial effusion. No flattening of the interventricular sept um or reflux of contrast into the hepatic veins. Aorta normal caliber with conventional arch vessel branching anatomy. No thoracic lymphadenopathy by CT size criteria. Satisfactory opacification of the pulmonary artery system. No pulmonary embolus. Evaluation of the lungs shows scattered mild emphysematous change. No consolidation or pleural effusi on. Visualized upper abdomen shows cholecystectomy clips. Left-sided MANAGER NURSING shunt catheter is present and loo ps within the right upper quadrant. Bones: No osseous destructive process. IMPRESSION: 1. No evidence for pulmonary embolus. 2. Scattered mild emphysematous change. No acute pulmonary process. 3. Small nonspecific basilar pericardial effusion.
[2019-10-07 15:35] VITALS: BP 115/74; PULSE 78; RESP 16; TEMP 98
== END 2019-10-07 15:30 | disposition home or self-care (01) ==
LOC: EC 13:04
DX: M54.6 Pain in thoracic spine (principal); Z87.891 Personal history of nicotine dependence; Z91.040 Latex allergy status; Z86.73 Personal history of transient ischemic attack (TIA), and cerebral infarction without residual deficits; Z90.710 Acquired absence of both cervix and uterus; Z86.69 Personal history of other diseases of the nervous system and sense organs; Z98.890 Other specified postprocedural states
CPT/HCPCS: 36415; 71275; 80053; 81001; 85025; 93005; 99284

== ENCOUNTER 2019-10-26 18:42 | Emergency (ER) | payer MEDICARE, OTHER ==
[2019-10-26 18:47] VITALS: BP 112/77; PULSE 75; RESP 18; TEMP 97.8
--- NOTE | 2019-10-26 19:40 | XR ---
EXAMINATION TYPE: XR ribs LT w pa chest xray DATE OF EXAM: 10/26/2019 COMPARISON: 04/09/2019 HISTORY: Pain left-sided rib pain TECHNIQUE: 5 views FINDINGS: Heart and mediastinum are normal. Lungs are clear of infiltrate. There is no pleural effusi on or pneumothorax. The left ribs appear intact. There is ventricular peritoneal shunt catheter on th e left side. IMPRESSION: No active cardiopulmonary disease. Normal heart. Normal left ribs. No change.
--- NOTE | 2019-10-26 20:02 | ED ---
General Adult HPI - General Chief complaint: Shortness of Breath Stated complaint: difficulty breathing Time Seen by Provider: 10/26/19 18:50 Source: patient, RN notes reviewed Mode of arrival: ambulatory Limitations: no limitations - History of Present Illness Initial comments: 44-year-old female with a past medical history of CVA, seizure disorder presents to the emergency department for a chief of left side pain. Patient states that on Sunday or about 5 days ago she was getting out of a taxi. States the taxi perked up on to the curb right next to it. States that when she got out of the car she did not realize the curb was repair and tripped over it falling on her left side. Patient states that since that time she has had pain with movement as well as deep breathing and sneezing on the left side. Denies any anterior chest pain. Denies shortness of breath besides the pain on the left side with breathing. Patient states she was looking online and wanted to make sure it was not broken. She states Motrin does help and she does not want anything for pain. Denies hitting her head. Patient has no other complaints at this time including shortness of breath, abdominal pain, nausea or vomiting, headache, or visual changes. - Related Data Home Medications Medication Instructions Recorded Confirmed Acyclovir [Zovirax] 400 mg PO TID 01/20/15 10/07/19 ALPRAZolam [Xanax] 1 mg PO HS PRN 04/09/19 10/07/19 Ibuprofen 800 mg PO TID PRN 09/11/19 10/07/19 guaiFENesin SYRUP 100MG/5ML 200 mg PO Q6H PRN 10/07/19 10/07/19 [Robitussin] Allergies Allergy/AdvReac Type Severity Reaction Status Date / Time latex Allergy aragon skin Verified 10/26/19 18:48 Review of Systems ROS Statement: Those systems with pertinent positive or pertinent negative responses have been documented in the HPI. ROS Other: All systems not noted in ROS Statement are negative. Past Medical History Past Medical History: CVA/TIA, Memory Impairment, Seizure Disorder Additional Past Medical History / Comment(s): Last seizure was 2003. 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 chronic constipation. 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 In 2000 she had another surgery involving the shunt and a vessel was nicked causing left side stroke symptoms. She has had many shunt surgeries Past Anesthesia/Blood Transfusion Reactions: Postoperative Nausea & Vomiting (PONV) Past Psychological History: Anxiety, Depression, Panic Disorder Smoking Status: Former smoker Past Alcohol Use History: None Reported Past Drug Use History: None Reported General Exam Limitations: no limitations General appearance: alert, in no apparent distress Head exam: Present: atraumatic, normocephalic, normal inspection Eye exam: Present: normal appearance, PERRL, EOMI. Absent: scleral icterus, conjunctival injection, periorbital swelling ENT exam: Present: normal exam, mucous membranes moist Neck exam: Present: normal inspection, full ROM. Absent: tenderness, meningismus, lymphadenopathy Respiratory exam: Present: normal lung sounds bilaterally, chest wall tenderness (left sided lateral chest wall tenderness without contusion or step off). Absent: respiratory distress, wheezes, rales, rhonchi, stridor Cardiovascular Exam: Present: regular rate, normal rhythm, normal heart sounds. Absent: systolic murmur, diastolic murmur, rubs, gallop, clicks GI/Abdominal exam: Present: soft, normal bowel sounds. Absent: distended, tenderness, guarding, rebound, rigid Back exam: Absent: vertebral tenderness (no cervical, thoracic, or lumbar spine tendernesss) Course Vital Signs 10/26/19 10/26/19 18:43 19:29 Temperature 97.8 F Pulse Rate 75 Respiratory 18 18 Rate Blood Pressure 112/77 O2 Sat by Pulse 98 Oximetry Medical Decision Making - Medical Decision Making X-ray of the left ribs shows no active cardiopulmonary disease. Normal heart. Given history of fall and pain with movement and deep breathing on the left side since injury she likely has at least a rib contusion. Patient has incentive spirometer at home, I did discuss using this to prevent pneumonia. She takes Motrin for pain which helps and she does not want anything different for pain. She just wanted to see if she had a rib fracture. She will follow-up in one to 2 days if she has any worsening symptoms she will return here. Disposition Clinical Impression: Contusion of rib on left side Disposition: HOME SELF-CARE Condition: Good Instructions (If sedation given, give patient instructions): Rib Contusion (ED) Additional Instructions: Please take Motrin and Tylenol for pain. Please use incentive spirometer throughout the day. If you develop cough or fever return to the emergency department. If you have any other worsening symptoms return to the emergency department. Is patient prescribed a controlled substance at d/c from ED?: No Referrals: Yaniv Mac DO [Primary Care Provider] - 1-2 days Time of Disposition: 20:01
== END 2019-10-26 20:14 | disposition home or self-care (01) ==
LOC: EC 18:42
DX: S20.212A Contusion of left front wall of thorax, initial encounter (principal); Z87.891 Personal history of nicotine dependence; Z91.040 Latex allergy status; Z86.73 Personal history of transient ischemic attack (TIA), and cerebral infarction without residual deficits; Z98.2 Presence of cerebrospinal fluid drainage device; W01.0XXA Fall on same level from slipping, tripping and stumbling without subsequent striking against object, initial encounter
CPT/HCPCS: 99284

== ENCOUNTER → 2019-11-26 | Outpatient (CLI) | payer MEDICARE, OTHER ==
[2019-11-26 09:58] LABS: Basophils # (A) 0.1 k/uL (0-0.2); Basophils % (A) 3 %; Eosinophils # (A) 0.2 k/uL (0-0.7); Eosinophils % (A) 4 %; Lymphocytes # (A) 1.6 k/uL (1.0-4.8); Lymphocytes % (A) 30 %; MCHC 32.7 g/dL (31.0-37.0); Mean Platelet Volume 8.6; Monocytes # (A) 0.4 k/uL (0-1.0); Monocytes % (A) 8 %; Neutrophils # (A) 2.9 k/uL (1.3-7.7); Neutrophils % (A) 54 %; Platelet Count 198 k/uL (150-450); RBC 5.01 m/uL (3.80-5.40); RDW 12.3 % (11.5-15.5); WBC 5.5 k/uL (3.8-10.6)
[2019-11-26 16:14] LABS: African American GFR (CKD) 103.9 (60.0-200.0); Albumin 4.8 g/dL (3.80-4.90); Albumin/Globulin Ratio 2.09 (1.60-3.17); Anion Gap 8.2 mmol/L (4.00-12.00); Calcium 9.4 mg/dL (8.7-10.3); Carbon Dioxide 24.8 mmol/L (21.6-31.8); Globulin 2.3 g/dL (1.6-3.3); Non-African American GFR(CKD) 89.7 (60.0-200.0); Potassium 3.8 mmol/L (3.5-5.5); Total Bilirubin 1.3 mg/dL (0.2-1.2); Total Protein 7.1 g/dL (6.2-8.2)
== END | disposition home or self-care (01) ==
LOC: LABWHC1 09:24
PROVIDERS: ATTEND Family Medicine
DX: J18.9 Pneumonia, unspecified organism (principal); R06.02 Shortness of breath
CPT/HCPCS: 36415; 80053; 85025; 85379

== ENCOUNTER 2020-05-17 17:31 | Emergency (ER) | payer MEDICARE, OTHER ==
[2020-05-17] MEDS ORDERED: SODIUM CHLORIDE 0.9% 1,000 ML IV STA (17:52)
--- NOTE | 2020-05-17 17:53 | ED ---
Chest Pain HPI - General Chief Complaint: Chest Pain Stated Complaint: sent by pcp/ possible heart attack Source: patient, RN notes reviewed, old records reviewed Mode of arrival: ambulatory Limitations: no limitations - History of Present Illness Initial Comments: This is a 45-year-old female to the ER she presents today for evaluation regards to chest pain left-sided chest pain started last night. Patient's long medical history with no cardiac activity no recent traumas of the left side. Patient states she is had left side of her chest radiates to her left shoulder. No shortness of breath no sweating no chest congestion no cough, no fevers MD Complaint: chest pain -: days(s) Onset: during rest Pain Location: left chest Pain Radiation: LUE, back Severity: moderate Severity scale (1-10): 4 Quality: tightness, sharp Consistency: constant Improves With: nothing Worsens With: exertion Context: other (Not) Anginal Symptoms: other (None) Other Symptoms: other (None) Treatments Prior to Arrival: other ( none) - Related Data Home Medications Medication Instructions Recorded Confirmed Acyclovir [Zovirax] 400 mg PO TID 01/20/15 05/17/20 ALPRAZolam [Xanax] 2 mg PO TID PRN 05/17/20 05/17/20 Unknown Inhaler 1 puff INHALATION RT-BID 05/17/20 05/17/20 Allergies Allergy/AdvReac Type Severity Reaction Status Date / Time No Known Allergies Allergy Verified 05/17/20 19:01 Review of Systems ROS Statement: Those systems with pertinent positive or pertinent negative responses have been documented in the HPI. ROS Other: All systems not noted in ROS Statement are negative. EKG Findings - EKG Comments: EKG Findings:: EKG is sinus rhythm 78 NV 134 QRS 80 QTc 440 Past Medical History Past Medical History: CVA/TIA, Memory Impairment, Seizure Disorder Additional Past Medical History / Comment(s): Last seizure was 2003. left sided paralized - vp [employer] products shunt bleed. chronic constipation. 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 In 2000 she had another surgery involving the shunt and a vessel was nicked causing left side stroke symptoms. She has had many shunt surgeries Past Anesthesia/Blood Transfusion Reactions: Postoperative Nausea & Vomiting (PONV) Past Psychological History: Anxiety, Depression, Panic Disorder Smoking Status: Former smoker Past Alcohol Use History: None Reported Past Drug Use History: None Reported General Exam Limitations: no limitations General appearance: alert, in no apparent distress Head exam: Present: atraumatic, normocephalic, normal inspection Eye exam: Present: normal appearance, PERRL, EOMI. Absent: scleral icterus, conjunctival injection, periorbital swelling ENT exam: Present: normal exam, mucous membranes moist Neck exam: Present: normal inspection. Absent: tenderness, meningismus, lymphadenopathy Respiratory exam: Present: normal lung sounds bilaterally. Absent: respiratory distress, wheezes, rales, rhonchi, stridor Cardiovascular Exam: Present: regular rate, normal rhythm, normal heart sounds. Absent: systolic murmur, diastolic murmur, rubs, gallop, clicks GI/Abdominal exam: Present: soft, normal bowel sounds. Absent: distended, tenderness, guarding, rebound, rigid Extremities exam: Present: normal inspection, full ROM, normal capillary refill. Absent: tenderness, pedal edema, joint swelling, calf tenderness Back exam: Present: normal inspection Neurological exam: Present: alert, oriented X3, CN II-XII intact Psychiatric exam: Present: normal affect, normal mood Skin exam: Present: warm, dry, intact, normal color. Absent: rash Course Vital Signs 05/17/20 17:36 Temperature 98.1 F Pulse Rate 82 Respiratory 18 Rate Blood Pressure 118/79 O2 Sat by Pulse 96 Oximetry - Reevaluation(s) Reevaluation #1: 05/17/20 18:33 Medical records reviewed Reevaluation #2: 05/17/20 19:34 Patient still with symptoms but is only when she moving only when she touches left-sided or chest feeling better and feeling like she wants to go home refusing cardiology observation Chest Pain MDM - MDM 45 female with atypical chest pain reproducible worse when she moves. No history of heart disease patient can be discharged home Disposition Clinical Impression: Atypical chest pain, Chest pain Disposition: HOME SELF-CARE Condition: Good Instructions (If sedation given, give patient instructions): Chest Pain (ED), Costochondritis (ED) Is patient prescribed a controlled substance at d/c from ED?: No Referrals: Yaniv Mac DO [Primary Care Provider] - 1-2 days
[2020-05-17 18:32] LABS: Basophils # (A) 0.1 k/uL (0-0.2); Basophils % (A) 1 %; Eosinophils # (A) 0.4 k/uL (0-0.7); Eosinophils % (A) 6 %; HCT 45.5 % (34.0-46.0); HGB 15.2 gm/dL (11.4-16.0); Lymphocytes # (A) 2.1 k/uL (1.0-4.8); Lymphocytes % (A) 30 %; MCH 32.4 pg (25.0-35.0); MCHC 33.5 g/dL (31.0-37.0); MCV 96.8 fL (80.0-100.0); Mean Platelet Volume 8.8; Monocytes # (A) 0.5 k/uL (0-1.0); Monocytes % (A) 6 %; Neutrophils # (A) 3.9 k/uL (1.3-7.7); Neutrophils % (A) 56 %; Platelet Count 194 k/uL (150-450); RDW 12.7 % (11.5-15.5)
[2020-05-17 18:43] LABS: ALT 10 U/L (4-34); AST 21 U/L (14-36); African American GFR (CKD) >90 (>60 ml/min/1.73 sqM); Alkaline Phosphatase 61 U/L (38-126); Anion Gap 7 mmol/L; Blood Urea Nitrogen 7 mg/dL (7-17); Carbon Dioxide 23 mmol/L (22-30); Chloride 109 mmol/L (98-107); Glucose 102 mg/dL (74-99); Magnesium 1.7 mg/dL (1.6-2.3); Non-African American GFR(CKD) >90 (>60 ml/min/1.73 sqM); Potassium 3.8 mmol/L (3.5-5.1); Sodium 139 mmol/L (137-145); Total Bilirubin 0.8 mg/dL (0.2-1.3); Total Protein 6.8 g/dL (6.3-8.2)
[2020-05-17 19:00] LABS: D-Dimer 0.46 mg/L FEU (<0.60); INR 0.9 (<1.2); Prothrombin Time 9.7 sec (9.0-12.0)
--- NOTE | 2020-05-17 19:07 | XR ---
EXAMINATION TYPE: XR chest 2V DATE OF EXAM: 05/17/2020 COMPARISON: CTA chest October 07, 2019. Chest x-ray October 26, 2019. HISTORY: Shortness of breath and chest pain after recent hysterectomy. TECHNIQUE: Frontal and lateral views of the chest are obtained. FINDINGS: Overlying EKG leads currently. There is no focal air space opacity, pleural effusion, or p neumothorax seen. The cardiac silhouette size is within normal limits. Underlying scoliotic curvatur e. Overlying left-sided MATCHER shunt catheter redemonstrated. Cholecystectomy clips redemonstrated IMPRESSION: No acute cardiopulmonary process. No significant change from prior studies.
[2020-05-17 19:48] VITALS: PULSE 64
[2020-05-17 19:54] VITALS: BP 105/73; RESP 16; TEMP 98.2
== END 2020-05-17 19:55 | disposition home or self-care (01) ==
LOC: EC 17:31
DX: R07.89 Other chest pain (principal); F32.9 Major depressive disorder, single episode, unspecified; F41.0 Panic disorder [episodic paroxysmal anxiety]; Z87.891 Personal history of nicotine dependence; Z79.899 Other long term (current) drug therapy; Z86.73 Personal history of transient ischemic attack (TIA), and cerebral infarction without residual deficits
CPT/HCPCS: 36415; 71046; 80053; 83690; 83735; 83880; 84484; 85025; 85379; 85610; 85730; 93005; 99285

== ENCOUNTER → 2020-06-01 | Outpatient (CLI) | payer MEDICARE, OTHER ==
--- NOTE | 2020-06-04 08:19 | USB ---
Reason for exam: follow-up at short interval from prior study. History: Patient has history of other cancer at age 20. Family history of breast cancer in mother at age 40. Physical Findings: Nurse did not find any significant physical abnormalities on exam. US Breast BILAT Right complete breast ultrasound includes all four quadrants, the retroareolar region and axilla. Finding demonstrates a 3 x 3 x 4mm oval, solid, hypoechoic lesion at 9-10 o'clock for which a biopsy is recommended. Left complete breast ultrasound includes all four quadrants, the retroareolar region and axilla. Finding demonstrates no cystic or solid lesion seen. These results were verbally communicated with the patient and result sheet given to the patient on 06/01/20. ASSESSMENT: Suspicious, BI-RAD 4 RECOMMENDATION: Ultrasound core biopsy of the right breast. Called Dr. Mac's office with mammographic findings and has scheduled an appointment for the patient for 07/08/20 at 8:[address] Hickman. Biopsy scheduled for 06/16/20 at 10:30. PRELIMINARY REPORT CALLED AND FAXED TO DR. HICKMAN ON 06/04/20.
== END | disposition home or self-care (01) ==
LOC: RADUSWWP 09:52
PROVIDERS: ATTEND Family Medicine
DX: N60.09 Solitary cyst of unspecified breast (principal)

== ENCOUNTER → 2020-06-16 | Day surgery (SDC) | payer MEDICARE, OTHER ==
[2020-06-16 09:56] VITALS: BP 106/73; PULSE 77; RESP 16; TEMP 98
--- NOTE | 2020-06-16 12:22 | USB ---
EXAMINATION TYPE: US discontinued breast bx RT DATE OF EXAM: 06/16/2020 COMPARISON: 06/01/2020 and 10/01/2019 HISTORY: 45-year-old female R92.8, abnormal mammogram, referred for ultrasound-guided core needle bio psy 9:00 right breast. TECHNIQUE: Targeted scanning at the 9:00 position of the right breast. FINDINGS: Presently, the lesion at the 9:00 position measuring 3 mm now has the appearance of the benign cyst e specially on real-time scanning. This structure is anechoic with posterior through transmission. The previous internal echoes have cleared suggesting clearing of internal debris. Biopsy is deferred. Six-month follow-up mammogram is recommended for reassessment of the right breast at the time the patient's annual exam. Findings and recommendation are discussed with the patient. IMPRESSION: Canceled right breast biopsy as the lesion now has the appearance of a simple cyst. 1. BI-RADS 3 - probably benign. RECOMMENDATION: 1. Six-month follow-up diagnostic bilateral mammograms (total one-year follow-up right breast and gustabo ual exam of the left breast). 2. The patient should continue monthly self breast exam. 3. This exam should not preclude additional follow-up of suspicious palpable abnormalities.
== END ==
LOC: RADUSWWP 09:35
PROVIDERS: ATTEND Surgery
DX: N60.01 Solitary cyst of right breast (principal)

== ENCOUNTER → 2021-03-22 | Outpatient (CLI) | payer MEDICARE, OTHER ==
--- NOTE | 2021-03-23 09:51 | BD ---
EXAMINATION TYPE: Axial Bone Density DATE OF EXAM: 03/22/2021 COMPARISON: Prior DEXA bone scan in 2017 CLINICAL HISTORY: Disorder of bone. Height: 65 Weight: 135.5 FRAX RISK QUESTIONS: Alcohol (3 or more units per day): no Family History (Parent hip fracture): no Glucocorticoids (More than 3mos): no (Ex: prednisone, prednisolone, methylprednisolone, dexamethasone, and hydrocortisone). History of Fracture in Adulthood: no Secondary Osteoporosis: 1. Type 1 Diabetes: no 2. Hyperthyroidism: no 3. Menopause before 45: yes 4. Malnutrition: no 5. Chronic liver disease: no Rheumatoid Arthritis: no Current Tobacco Use: no RISK FACTORS HISTORY OF: Surgery to Spine/Hip(right/left)/Wrist (right/left): no Family History of Osteoporosis: yes Active: sometimes Diet low in dairy products/other sources of calcium: yes Postmenopausal woman: hysterectomy 2019 Take estrogen and/or progesterone medications: no MEDICATIONS: xanax, recyclevere, hydroxyzine Additional History: EXAM MEASUREMENTS: Bone mineral densitometry was performed using the [employer] System. Bone mineral density as measured about the Lumbar spine is: ----- L1-L4(G/cm2): 1.137-0.6 T Score Values are as follows: ----- L2: -0.6 ----- L3: -0.6 ----- L4: -0.7 ----- L1-L4: -0.4 Bone mineral density has: decreased -3.1 % since study of: 04.13.2017 Bone mineral density about the R hip (g/cm2): 0.775 Bone mineral density about the L hip (g/cm2): 0.864 T Score values are as follows: -----R Neck: -1.9 -----L Neck: -1.2 -----R Total: -2.0 -----L Total: -2.3 Bone mineral density has: increased 0.4 % since study of: 04.13.2017 IMPRESSION: Osteopenia (T Score between -2.5 and -1) remains present. There remains slightly increased risk of fracture and the patient may be considered for treatment. Re-Screen 2-5 years. NOTE: T-SCORE=SD OF THE YOUNG ADULT MEAN.
== END | disposition home or self-care (01) ==
LOC: RADBDWWP 11:17
PROVIDERS: ATTEND Obstetrics & Gynecology
DX: Z13.820 Encounter for screening for osteoporosis (principal); M85.89 Other specified disorders of bone density and structure, multiple sites; Z78.0 Asymptomatic menopausal state
CPT/HCPCS: 77080

== ENCOUNTER 2021-11-07 09:46 | Day surgery (SDC) | payer MEDICARE, OTHER ==
[2021-10-31 16:21] VITALS: BMI 22.8
[~2021-11-07 09:46] MED LIST: DEXAMETHASONE SOD PHOSPHATE 4 MG/ML 1 ML VIAL IV ONE; HYDROmorphone 0.5 MG/0.5 ML SYRINGE IVP PRN; LACTATED RINGERS 1,000 ML IV SCH; ONDANSETRON 4 MG/2 ML VIAL IVP ONE; Pre Op ABX Message 1 EACH MISC MISCELLANE ONE
[2021-11-07 10:56] VITALS: RESP 16
[2021-11-07] MEDS ORDERED: MIDAZOLAM 2 MG/2 ML VIAL ONE (11:05)
[2021-11-07] MEDS ORDERED: PROPOFOL 10 MG/ML 20 ML VIAL IV ONE (11:05)
[2021-11-07] MEDS ORDERED: LIDOCAINE 1% INJ 10MG/ML (20 ML MDV) ONE (11:05)
[2021-11-07] MEDS ORDERED: fentaNYL (PF) 50 MCG/ML 2 ML AMP ONE (11:05)
[2021-11-07] MEDS ORDERED: BUPIVACAINE (PF) 0.5% 30 ML VIAL SQ ONE ×2 (11:13→11:40)
[2021-11-07] MEDS ORDERED: SODIUM CHLORIDE 0.9% 50 ML with ceFAZolin 1,000 MG IV ONE ×2 (11:31)
--- NOTE | 2021-11-07 11:49 | P.OP ---
Date of Procedure: 11/07/21 Preoperative Diagnosis: Torn lateral meniscus left knee Postoperative Diagnosis: 1. Torn lateral meniscus left knee 2. Synovitis Procedure(s) Performed: 1. Arthroscopy left knee with partial lateral meniscectomy (10 percent of meniscus excised) 2. Partial synovectomy medial femoral, lateral femoral, and patellofemoral compartments Anesthesia: LYUDMILA Surgeon: Gabriele Gamez Pathology: none sent Condition: stable Disposition: PACU Indications for Procedure: This is a 46-year-old female that presented to my office with pain in her left knee. MRI demonstrated torn lateral meniscus and after discussing the surgical and nonsurgical treatment options with her at length she wishes to proceed with arthroscopic debridement of her left knee. Informed consent was obtained. Operative Findings: The operative findings are consistent with a torn lateral meniscus and synovitis of the left knee Description of Procedure: Patient was seen and evaluated in the preoperative area, the operative site was marked with a skin marker. The patient was then brought to the operating room and given 2 g of Ancef intravenously. A general anesthetic was administered by the anesthesia department. Tourniquet was placed on the left upper thigh and the left lower extremity was then prepped and draped in usual sterile fashion. A universal timeout was then performed confirming the patient's name, surgical site, ALLERGIES, and consent. The limb was then exsanguinated and tourniquet insufflated to 250 mmHg. Standard inferior medial and inferior lateral portals were established in the knee. The trochar was inserted in the inferolateral portal. Examination began at the patellofemoral joint. There was no chondral malacia the patellofemoral compartment and a moderate amount of synovitis. Next the medial compartment was visualized. There was no tear of the medial meniscus. There was no chondral malacia of the mediofemoral compartment and mild amount of synovitis. The notch area was then visualized and the ACL was intact. The Lateral compartment was then visualized and there was a tear of the anterior horn of the lateral meniscus. There was no evidence of chondromalacia, but a mild amount of synovitis. Next, using an arthroscopic shaver and a biter, partial lateral meniscectomy was performed stable margins. Approximately 10% of the meniscus was excised. A partial synovectomy is performed the medial femoral, lateral femoral, shah llofemoral compartments. Knee was then copiously irrigated, instruments removed, incisions were closed with 4-0 nylon. 30 mL of quarter percent plain Marcaine was injected sterilely into the surgical area. A sterile dressing was then applied, and the tourniquet was released. Patient was then transferred to recovery room in stable condition.condition.
[2021-11-07 11:58] VITALS: TEMP 97.3
[2021-11-07 13:13] VITALS: BP 114/81; PULSE 70
== END 2021-11-07 14:10 | disposition home or self-care (01) ==
LOC: OR 09:46
PROVIDERS: ATTEND Orthopaedic Surgery
DX: S83.282A Other tear of lateral meniscus, current injury, left knee, initial encounter (principal); M65.9 Synovitis and tenosynovitis, unspecified
CPT/HCPCS: 29881; J2250; J1100; J2405; J0690; J2001; J3010; J2704

== ENCOUNTER → 2022-11-11 | Outpatient (CLI) | payer MEDICARE, OTHER ==
--- NOTE | 2022-11-12 21:42 | MR ---
EXAMINATION TYPE: MR shoulder LT wo con DATE OF EXAM: 11/11/2022 COMPARISON: None. HISTORY: Left shoulder pain. Clicking and popping sensation for years with difficulty raising arm ove rhead. TECHNIQUE: Multiplanar, multisequence imaging of the left shoulder is performed without contrast. FINDINGS: Rotator Cuff: Distal supraspinatus and infraspinatus tendons are intact. Rotator cuff muscle bulk is preserved. Acromioclavicular Joint: Mild capsular hypertrophy. Mild spurring. Underlying fat plane maintained. D istal acromion morphology unremarkable. Glenohumeral Joint: Small effusion. No significant spurring. Labrum: The labrum appears grossly intact given limitation of non-arthrogram study. Biceps Tendon: The long head of biceps is in normal location within bicipital groove. Bone marrow signal: No focal abnormal marrow signal is appreciated. Other: No additional significant abnormality is appreciated. IMPRESSION: No rotator cuff or labral tear is seen.
== END | disposition home or self-care (01) ==
LOC: RADMRIMAIN 11:30
PROVIDERS: ATTEND Orthopaedic Surgery
DX: M25.512 Pain in left shoulder (principal)

== ENCOUNTER 2023-03-17 10:59 | Emergency (ER) | payer MEDICARE, OTHER ==
[2023-03-17 11:08] VITALS: RESP 18; TEMP 97.9
[2023-03-17] MEDS ORDERED: diphenhydrAMINE 50 MG/ML 1 ML VIAL IVP STA (11:19)
[2023-03-17] MEDS ORDERED: SODIUM CHLORIDE 0.9% 1,000 ML IV STA (11:19)
[2023-03-17] MEDS ORDERED: METOCLOPRAMIDE 5 MG/ML 2 ML VIAL IVP STA (11:19)
[2023-03-17] MEDS ORDERED: KETOROLAC 15 MG/ML 1 ML VIAL IVP STA (11:19)
--- NOTE | 2023-03-17 11:45 | ED ---
Headache HPI - General Chief Complaint: Headache Stated Complaint: Headache Time Seen by Provider: 03/17/23 11:13 Mode of arrival: EMS Limitations: no limitations - History of Present Illness Initial Comments: Patient is a 48-year-old female presenting with chief complaint of headache. Patient has history of aqueductal stenosis and has a GORE INSERTER shunt. She is concerned that this is appendicitis due to the shunt. She admits to nausea, vomiting, dizziness. No recent head trauma or injury. No vision or hearing changes, numbness, tingling, weakness, chest pain, difficulty breathing, fever, chills, abdominal pain, URI-like symptoms. - Related Data Home Medications Medication Instructions Recorded Confirmed Acyclovir [Zovirax] 400 mg PO BID 01/20/15 01/03/23 ALPRAZolam [Xanax] 2 mg PO HS 05/17/20 01/03/23 Escitalopram Oxalate [Lexapro] 10 mg PO HS 10/31/21 01/03/23 hydrOXYzine HCL [Atarax] 50 mg PO QID PRN 10/31/21 01/03/23 Mirtazapine [Remeron] 1 tab PO DAILY 01/03/23 01/03/23 Previous Rx's Medication Instructions Recorded Sennosides [Senokot] 2 tab PO DAILY PRN #60 tablet 11/07/21 HYDROcodone/APAP 7.5-325MG [Dunmore 1 each PO Q6HR PRN #28 tab 01/03/23 7.5] Butalb/APAP/Caff 50-325-40Mg 1 tab PO Q4H PRN #18 tablet 03/17/23 [Fioricet 50-325-40] Metoclopramide [Reglan] 10 mg PO BID PRN #20 tab 03/17/23 Allergies Allergy/AdvReac Type Severity Reaction Status Date / Time No Known Allergies Allergy Verified 01/03/23 07:59 Review of Systems ROS Statement: Those systems with pertinent positive or pertinent negative responses have been documented in the HPI. ROS Other: All systems not noted in ROS Statement are negative. Past Medical History Past Medical History: Asthma, CVA/TIA, Memory Impairment, Seizure Disorder Additional Past Medical History / Comment(s): 1991 aquaductal stenosis causing hydrocephalis with v-p shunt inserted., 2000 shunt surgery & nicked vessel causing bleed on brain with left side stroke symptoms- left side paralysis., Last seizure 2003,. chronic constipation., states cardiac ablation for ventricular arrythmia., constant back pain. , frequent falls., wears left foot brace., seasonal asthma. History of Any Multi-Drug Resistant Organisms: None Reported Past Surgical History: Cardiac Ablation, Section, Cholecystectomy, Hysterectomy, Orthopedic Surgery, Tubal Ligation, Ventriculoperitoneal Shunt Additional Past Surgical History / Comment(s): 1991 ventricular-peritoneal shunt., In 2000 she had another surgery involving the shunt and a vessel was nicked causing left side stroke symptoms. She has had many shunt surgeries, cardiac ablation (2014)., left cubital tunnel surgery. Past Anesthesia/Blood Transfusion Reactions: Previous Problems w/ Anesthesia, Motion Sickness, Postoperative Nausea & Vomiting (PONV) Past Psychological History: Anxiety, Depression, Panic Disorder Smoking Status: Former smoker Past Alcohol Use History: Occasional Past Drug Use History: Marijuana - Past Family History Mother Family Medical History: Cancer General Exam Limitations: no limitations General appearance: alert, in no apparent distress Head exam: Present: atraumatic, normocephalic, normal inspection Eye exam: Present: normal appearance, PERRL, EOMI. Absent: scleral icterus, periorbital swelling Pupils: Present: normal accommodation Neck exam: Present: normal inspection, full ROM Respiratory exam: Present: normal lung sounds bilaterally. Absent: respiratory distress, wheezes, rales, rhonchi, stridor Cardiovascular Exam: Present: regular rate, normal rhythm, normal heart sounds. Absent: systolic murmur, diastolic murmur, rubs, gallop, clicks Neurological exam: Present: alert, oriented X3, CN II-XII intact Expanded Patient oriented to: Present: person, place, time Speech: Present: fluid speech Cranial nerves: EOM's Intact: Normal Eye Response: (4) open spontaneously Motor Response: (6) obeys commands Verbal Response: (5) oriented Jackie Total: 15 Psychiatric exam: Present: normal affect, normal mood Skin exam: Present: warm, dry, intact, normal color. Absent: rash Course Vital Signs 03/17/23 03/17/23 03/17/23 11:02 12:53 14:31 Temperature 97.9 F Pulse Rate 78 72 70 Respiratory 18 18 18 Rate Blood Pressure 120/79 103/68 111/84 O2 Sat by Pulse 98 96 95 Oximetry Medical Decision Making - Medical Decision Making Was pt. sent in by a medical professional or institution (, HOMER, FUR MACHINE OPERATOR, urgent care, hospital, or long term...) When possible be specific @ -No Did you speak to anyone other than the patient for history (EMS, parent, family, police, friend...)? What history was obtained from this source @ -No Did you review nursing and triage notes (agree or disagree)? Why? @ -I reviewed and agree with nursing and triage notes Were old charts reviewed (outside hosp., previous admission, EMS record, old EKG, old radiological studies, urgent care reports/EKG's, long term records)? Report findings @ -No old charts were reviewed Differential Diagnosis (chest pain, altered mental status, abdominal pain women, abdominal pain men, vaginal bleeding, weakness, fever, dyspnea, syncope, headache, dizziness, GI bleed, back pain, seizure, CVA, palpatations, mental health, musculoskeletal)? @ -MDM Differential Headache: Migraine, tension, cluster, carbon monoxide, central venous thrombosis, pension karma temporal arteritis, acute closure glaucoma, intercranial hemorrhage, mastoiditis, sinusitis, head injury this is not meant to be an all-inclusive list. EKG interpreted by me (3pts min.). @ -As above X-rays interpreted by me (1pt min.). @ -GORE INSERTER shunt series x-rays including KUB, skull, and chest show no acute process CT interpreted by me (1pt min.). @ -CT of the brain shows no acute process, shunt is in proper position with no hydrocephalus noted U/S interpreted by me (1pt. min.). @ -None done What testing was considered but not performed or refused? (CT, X-rays, U/S, labs)? Why? @ -None What meds were considered but not given or refused? Why? @ -None Did you discuss the management of the patient with other professionals (professionals i.e. HOMER Patterson, FUR MACHINE OPERATOR, lab, RT, psych nurse, elementary school social worker, job placement counselor, teacher, signals officer, special education case manager)? Give summary @ -No Was smoking cessation discussed for >3mins.? @ -No Was critical care preformed (if so, how long)? @ -No Were there social determinants of health that impacted care today? How? (Ho melessness, low income, unemployed, alcoholism, drug addiction, transportation, low edu. Level, literacy, decrease access to med. care, correction, rehab)? @ -No Was there de-escalation of care discussed even if they declined (Discuss DNR or withdrawal of care, Hospice)? DNR status @ -No What co-morbidities impacted this encounter? (DM, HTN, Smoking, COPD, CAD, Cancer, CVA, ARF, Chemo, Hep., AIDS, mental health diagnosis, sleep apnea, morbid obesity)? @ -Aqueductal stenosis with GORE INSERTER shunt Was patient admitted / discharged? Hospital course, mention meds given and route, prescriptions, significant lab abnormalities, going to OR and other pertinent info. @ -Patient is a 48-year-old female presenting with chief complaint of headache. She is worried that it is her GORE INSERTER shunt causing the headache. On physical examination no focal neurological deficits, GCS 15. CT of the brain shows no acute process and no hydrocephalus. GORE INSERTER shunt series x-rays including KUB, skull, and chest are negative for any acute process. On reassessment patient reports improvement in her pain. She'll be discharged home and instructed to follow-up with her neurologist. Provided with Reglan and Fioricet. Follow-up with PCP. Report back to ER with any new or worsening symptoms. Discussed return parameters and answered all questions. Patient conveyed verbal understanding and agreed to the plan. I discussed this case in detail with my attending Dr. Nicole Undiagnosed new problem with uncertain prognosis? @ -No Drug Therapy requiring intensive monitoring for toxicity (Heparin, Nitro, Insulin, Cardizem)? @ -No Were any procedures done? @ -No Diagnosis/symptom? @ -Headache Acute, or Chronic, or Acute on Chronic? @ -Acute Uncomplicated (without systemic symptoms) or Complicated (systemic symptoms)? @ -Uncomplicated Side effects of treatment? @ -No Exacerbation, Progression, or Severe Exacerbation? @ -No Poses a threat to life or bodily function? How? (Chest pain, [place], [place], pneumonia, PE, COPD, DKA, ARF, appy, cholecystitis, CVA, Diverticulitis, Homicidal, Suicidal, threat to staff... and all critical care pts) @ -No Disposition Clinical Impression: Headache Disposition: HOME SELF-CARE Condition: Good Instructions (If sedation given, give patient instructions): Acute Headache (ED) Additional Instructions: Follow-up with PCP. Report back to ER with any new or worsening symptoms. Take Motrin and Tylenol as needed for pain control. Take medication as prescribed. Prescriptions: Butalb/APAP/Caff 50-325-40Mg [Fioricet 50-325-40] 1 tab PO Q4H PRN #18 tablet PRN Reason: Headache Metoclopramide [Reglan] 10 mg PO BID PRN #20 tab PRN Reason: Nausea Is patient prescribed a controlled substance at d/c from ED?: No Referrals: Yaniv Mac DO [Primary Care Provider] - 1-2 days Time of Disposition: 13:36
--- NOTE | 2023-03-17 13:09 | CT ---
EXAMINATION TYPE: CT brain wo con DATE OF EXAM: 03/17/2023 COMPARISON: INDICATION: Headache, concern for RAIL SETTER shunt maformation DLP: 1217.6 mGycm, Automated exposure control for dose reduction was used. CONTRAST: None CT of the brain is performed utilizing 3 mm thick sections through the posterior fossa and 3 mm thick sections through the remaining calvarium. Study is performed within 24 hours of arrival to the hosp ital. No abnormal hyperdensity is present to suggest an acute intracranial hemorrhage. No mass lesion is evident. No acute infarcts are evident. Encephalomalacia through the right occipital lobe is present. Ventricles and sulci are slightly prominent for the patient age. Shunt catheter is present on the le ft. No temporal horn dilatation is evident. No increasing prominence of ventricles is evident. No hyd rocephalus. Paranasal sinuses and mastoid air cells within the [id number] are clear. IMPRESSIONS: 1. Left shunt catheter appears stable in position. No hydrocephalus is evident. 2. 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 This is stable from comparison.
--- NOTE | 2023-03-17 13:17 | XR ---
EXAMINATION TYPE: XR chest 2V DATE OF EXAM: 03/17/2023 COMPARISON: 05/17/2020 HISTORY: Shunt series TECHNIQUE: 2 view chest FINDINGS: Shunt catheter transverses the field of view. Heart size is normal. Pulmonary vasculature is normal. The lungs are clear. No suspicious infiltrates . IMPRESSION: 1. No acute pulmonary process. 2. Shunt within the field of view is unremarkable.
--- NOTE | 2023-03-17 13:18 | XR ---
EXAMINATION TYPE: XR skull limited DATE OF EXAM: 03/17/2023 COMPARISON: None HISTORY: Shunt series TECHNIQUE: 2 view skull FINDINGS: Shunt catheter is present. Appears intact within the field of view. IMPRESSION: 1. Unremarkable left sided shunt catheter.
--- NOTE | 2023-03-17 13:21 | XR ---
EXAMINATION TYPE: XR KUB DATE OF EXAM: 03/17/2023 COMPARISON: 04/22/2019 INDICATION: [employer] shunt series TECHNIQUE: Single view abdomen supine view FINDINGS: There is a normal bowel gas pattern. Psoas margins are normal. No organomegaly is present. Left-sided catheter wraps within the right portion of the abdomen with the tip in the left lower quad rant. No mass effect is evident. IMPRESSION: 1. Unremarkable Abdomen. 2. Normal shunt catheter as visualized within the field of view.
[2023-03-17] MEDS ORDERED: BUTALB/APAP/CAFF 50-325-40MG TAB PO STA (13:34)
[2023-03-17 14:34] VITALS: BP 111/84; PULSE 70
== END 2023-03-17 14:42 | disposition home or self-care (01) ==
LOC: EC 10:59
DX: R51.9 Headache, unspecified (principal); J45.909 Unspecified asthma, uncomplicated; F12.90 Cannabis use, unspecified, uncomplicated; Z86.59 Personal history of other mental and behavioral disorders; Z87.891 Personal history of nicotine dependence; Z90.49 Acquired absence of other specified parts of digestive tract; Z86.73 Personal history of transient ischemic attack (TIA), and cerebral infarction without residual deficits
CPT/HCPCS: 70250; 71046; 74018; 70450; 99285; 96374; 96375 ×2; 96361 ×3; J1200; J2765; J1885

== ENCOUNTER 2023-04-23 08:13 | Day surgery (SDC) | payer MEDICARE, OTHER ==
[2023-04-19 11:38] VITALS: BMI 28.3
--- NOTE | 2023-04-22 12:16 | HP ---
HISTORY AND PHYSICAL DATE OF SURGERY: 04/23/2023. HISTORY OF PRESENT ILLNESS: Priscila Bess is a 48-year-old patient, who was seen with progressive left shoulder pain. We discussed options for treatment. She elected to proceed with left shoulder manipulation under anesthesia with steroid injection. Consent regarding procedure was obtained. PAST MEDICAL HISTORY: Anxiety. PAST SURGICAL HISTORY: Cholecystectomy, hysterectomy, left shoulder arthroscopy. DAILY MEDICATIONS: 1. Xanax. 2. Lexapro. 3. Remeron. 4. Naprosyn. ALLERGIES: None. SOCIAL HISTORY: She denies current tobacco use. PHYSICAL EXAMINATION: Evaluation of the left shoulder, her previous arthroscopic portal sites are well healed. Flexion is 70 degrees, abduction is 45 degrees, external rotation is 15 degrees. She does have some weakness. Her distal neurovascular exam is intact. RADIOGRAPHS: Of the left shoulder revealed stable conversion to a flat acromion along with a stable glenohumeral joint. IMPRESSION: 1. Left shoulder adhesive capsulitis. 2. History of left shoulder arthroscopy with rotator cuff repair. 3. History of previous cerebrovascular accident. PLAN: Manipulation under anesthesia of the left shoulder with steroid injection. MMODL / IJN: [id number] /
[~2023-04-23 08:13] MED LIST changes: -DEXAMETHASONE SOD PHOSPHATE 4 MG/ML 1 ML VIAL IV ONE; +LIDOCAINE 1% (10MG/ML) FOR IV START INTRADERMA PRN; -ONDANSETRON 4 MG/2 ML VIAL IVP ONE
[2023-04-23] MEDS ORDERED: LACTATED RINGERS 1,000 ML IV ONE (08:34)
[2023-04-23] MEDS ORDERED: ONDANSETRON 4 MG/2 ML VIAL ONE (09:02)
[2023-04-23] MEDS ORDERED: ONDANSETRON 4 MG/2 ML VIAL IVP ONE (09:04)
[2023-04-23] MEDS ORDERED: DEXAMETHASONE SOD PHOSPHATE 4 MG/ML 1 ML VIAL IV ONE (09:06)
[2023-04-23] MEDS ORDERED: LIDOCAINE 2% INJ 20 MG/ML (2 ML VIAL) ONE (09:22)
[2023-04-23] MEDS ORDERED: fentaNYL (PF) 50 MCG/ML 2 ML AMP ONE (09:22)
[2023-04-23] MEDS ORDERED: PROPOFOL 10 MG/ML 20 ML VIAL IV ONE (09:22)
[2023-04-23] MEDS ORDERED: MIDAZOLAM 2 MG/2 ML VIAL ONE (09:22)
--- NOTE | 2023-04-23 09:42 | P.OP ---
Date of Procedure: 04/23/23 Preoperative Diagnosis: Left shoulder adhesive capsulitis Postoperative Diagnosis: Left shoulder adhesive capsulitis Procedure(s) Performed: Manipulation under anesthesia left shoulder with steroid injection Anesthesia: MAC Surgeon: Alonzo Fair Estimated Blood Loss (ml): 0 Pathology: none sent Condition: stable Disposition: PACU Indications for Procedure: 48-year-old patient was seen with persistent left shoulder adhesions with history of previous arthroscopic rotator cuff repair. I discussed options. She elected to proceed with manipulation under anesthesia left shoulder with steroid injection. Consent was obtained Operative Findings: See description of procedure Description of Procedure: Patient was taken to a monitored anesthesia area. She received IV sedation by the department of anesthesia. Once sufficient anesthesia was noted I proceeded with a manipulation of left shoulder achieving near full range of motion with audible tearing of the adhesions. The anterior aspect of the shoulder was prepped and draped in the normal sterile orthopedic fashion. I injected a solution of 1 mL Depo-Medrol and 2 mL quarter percent plain Marcaine intra- articular sterile technique. The shoulder was again taken through range of motion. I applied a sterile Band-Aid. The patient was awakened having tolerated procedure well.
[2023-04-23 09:44] VITALS: TEMP 98
[2023-04-23] MEDS ORDERED: HYDROmorphone 0.5 MG/0.5 ML SYRINGE IVP ONE ×2 (09:50→09:56)
[2023-04-23] MEDS ORDERED: KETOROLAC 15 MG/ML 1 ML VIAL IVP ONE (10:10)
[2023-04-23 10:55] VITALS: BP 125/80; PULSE 73; RESP 14
== END 2023-04-23 11:06 | disposition home or self-care (01) ==
LOC: OR 08:13
PROVIDERS: ATTEND Orthopaedic Surgery
DX: M75.02 Adhesive capsulitis of left shoulder (principal); F41.9 Anxiety disorder, unspecified; Z90.49 Acquired absence of other specified parts of digestive tract; Z90.710 Acquired absence of both cervix and uterus; Z98.890 Other specified postprocedural states; Z79.899 Other long term (current) drug therapy
CPT/HCPCS: 23700; J2250; J1100; J2405; J3010; J1885; J2704; J1170; J2001

== ENCOUNTER 2023-05-17 08:21 | Day surgery (SDC) | payer MEDICARE, OTHER ==
[2023-05-11 12:20] VITALS: BMI 28.3
--- NOTE | 2023-05-16 20:39 | HP ---
HISTORY AND PHYSICAL DATE OF SURGERY: 05/17/2023. HISTORY OF PRESENT ILLNESS: Priscila Bess is a 48-year-old patient, who was seen with left shoulder rotator cuff re-tear with failure of hardware. I recommend arthroscopy of left shoulder with repair of rotator cuff tendon tear. We discussed the procedure, she was agreeable, consent was obtained. PAST MEDICAL HISTORY: Noncontributory. PAST SURGICAL HISTORY: Shoulder arthroscopy. DAILY MEDICATIONS: 1. Xanax. 2. Lexapro. 3. Acyclovir. ALLERGIES: None. SOCIAL HISTORY: She denies tobacco use. PHYSICAL EVALUATION OF THE LEFT SHOULDER: Previous arthroscopic portal sites are well healed. Flexion is 90 degrees, abduction 65 degrees, external rotation 50 degrees with weakness. There is tenderness along the lateral acromial area. Left shoulder radiographs revealed evidence of a failure of the SwiveLock anchor, which is not noted to be in the soft tissues, lateral to the tuberosity. IMPRESSION: Left shoulder rotator cuff tear with hardware failure. PLAN: Arthroscopy of left shoulder with arthroscopic rotator cuff repair. MMODL / IJN: [id number] /
[~2023-05-17 08:21] MED LIST changes: +DEXAMETHASONE SOD PHOSPHATE 4 MG/ML 1 ML VIAL IV ONE; -LIDOCAINE 1% (10MG/ML) FOR IV START INTRADERMA PRN; +ONDANSETRON 4 MG/2 ML VIAL IVP ONE; -Pre Op ABX Message 1 EACH MISC MISCELLANE ONE
[2023-05-17] MEDS ORDERED: SCOPOLAMINE 1 MG/72 HR PATCH TRANSDERM ONE (09:20)
[2023-05-17] MEDS ORDERED: MIDAZOLAM 2 MG/2 ML VIAL IVP ONE (09:23)
[2023-05-17] MEDS ORDERED: NEOSTIGMINE 1 MG/ML 10 ML VIAL ONE (10:32)
[2023-05-17] MEDS ORDERED: LIDOCAINE 2% INJ 20 MG/ML (2 ML VIAL) ONE (10:32)
[2023-05-17] MEDS ORDERED: DEXAMETHASONE SOD PHOSPHATE 4 MG/ML 1 ML VIAL ONE (10:32)
[2023-05-17] MEDS ORDERED: MIDAZOLAM 2 MG/2 ML VIAL ONE (10:32)
[2023-05-17] MEDS ORDERED: fentaNYL (PF) 50 MCG/ML 2 ML AMP ONE (10:32)
[2023-05-17] MEDS ORDERED: ROCURONIUM 10 MG/ML (5 ML VIAL) IV ONE (10:32)
[2023-05-17] MEDS ORDERED: GLYCOPYRROLATE 0.2 MG/ML 2 ML VIAL ONE (10:32)
[2023-05-17] MEDS ORDERED: SUCCINYLCHOLINE CHLORIDE 200 MG/10 ML VIAL IV ONE (10:32)
[2023-05-17] MEDS ORDERED: PROPOFOL 10 MG/ML 20 ML VIAL IV ONE (10:32)
[2023-05-17] MEDS ORDERED: ROPIVACAINE 5 MG/ML 30 ML VIAL ONE (10:32)
--- NOTE | 2023-05-17 12:23 | P.OP ---
Date of Procedure: 05/17/23 Preoperative Diagnosis: Left shoulder failed hardware with recurrent rotator cuff tear Postoperative Diagnosis: 1. Left shoulder failed hardware with recurrent rotator cuff tendon tear 2. Left shoulder partial long head biceps tendon tear 3. Left shoulder adhesive capsulitis Procedure(s) Performed: 1. Left shoulder arthroscopic rotator cuff repair 2. Left shoulder arthroscopic biceps tenotomy 3. Left shoulder arthroscopic lysis of adhesions Implants: 1Arthrex 8.0 swivel lock anchor Arthrex bonesync5 mL Anesthesia: GETA, regional (Interscalene block) Surgeon: Alonzo Fair Clinical Material Handler #1: Vish Welch Estimated Blood Loss (ml): 12 Pathology: none sent Condition: stable Disposition: PACU Indications for Procedure: 48-year-old patient who was seen with failure of a left shoulder swivel lock anchor and probable recurrent tear. I discussed arthroscopy left shoulder with revision rotator cuff repair and debridement. I discussed the procedure, risks, benefits recovery. Patient was agreeable and consent was obtained. Operative Findings: See description of procedure Description of Procedure: Patient underwent an interscalene block by department of anesthesia. The patient was then taken to the operative suite. The patient underwent a general anesthetic by the department of anesthesia. The patient was placed into a lateral position and secured. There was appropriate padding of the bony prominence. [] shoulder was then prepped and draped in normal sterile orthopedic fashion. We placed the extremity in 10 pounds of longitudinal traction. A posterior incision was now made for a posterior working portal site. The trocar and cannula were inserted into the glenohumeral joint. Arthroscopy was initiated. Spinal needle was now inserted anteriorly, to ascertain the anterior working portal site. An incision was now made in that area, a trocar was inserted followed by a probe. There was some superficial tearing of the superior labrum along with some partial tearing and hyperemia long head biceps tendon. There was no smoking chondromalacia present. I performed an arthroscopic biceps tenotomy. I debrided out some of the superficial tearing of the superior labrum. I now noted lesions throughout the glenohumeral joint. I performed a lysis of adhesions. I noted adequate lysis of the adhesions at this point. I probed the residual labrum and it was stable. Instruments were now removed from glenohumeral joint. Utilizing the posterior working portal site, the trocar and cannula were inserted into the subacromial space. Arthroscopy initiated. I made an incision 2 fingerbreadths lateral to the acromion. I introduced my trocar followed by my ArthroCare ablator. I now began ablating thick subacromial bursal tissue, which exposed the undersurface of the anterior acromion. There was an adequate subacromial decompression. I did note an anchor floating along the anterior lateral aspect of the subacromial space. I extended my lateral incision. I introduced loose body forceps and retrieve that anchor without difficulty. I now turned my attention to the rotator cuff tendon. I noted a recurrent tear along the posterior distal supraspinatus area. I debrided the margins getting down to stable tendon tissue. I noted significant adhesions throughout the subacromial space. I performed a lysis of adhesions. I noted adequate resection of all the adhesions. I noted the previous hole/defect where the anchor was. At this point I passed 2 everted mattress suture through good bites of rotator cuff tendon. I now with assistance of Stephen CORONEL mixed Arthrex bonesync-5ml. I opened up an Arthrex 8.0 swivel lock anchor. The 4 suture limbs were passed through the eyelet of that anchor and then I used a hemostat to h old the sutures and place. I now with assistance of Stephen CORONEL introduced bonesync into our hole/defect filling it up very nicely. We now introduced anchor and I put the eyelet into the previous hole/defect. Stephen CORONEL tensioned all 4 suture limbs and then deployed the anchor with excellent fixation noted. All residual suture limbs were now clipped. We had good compression of the tendon along the entire footprint. Instruments now removed from the portal sites. All portal sites were approximated with nylon suture. Sterile dressings were applied followed by a shoulder immobilizer. Vish CORONEL assisted in this complex case. The patient was awakened, transferred to a bed, and taken to recovery in stable condition.
[2023-05-17 12:39] VITALS: TEMP 97.2
[2023-05-17 13:29] VITALS: RESP 20
[2023-05-17] MEDS ORDERED: HYDROcodone/APAP 7.5-325MG 1 EACH TAB ONE (13:31)
[2023-05-17] MEDS ORDERED: HYDROcodone/APAP 7.5-325MG 1 EACH TAB PO ONE (13:35)
[2023-05-17 14:11] VITALS: BP 124/81; PULSE 81
--- NOTE | 2023-05-17 19:12 | P.ANPRN ---
Procedure Note - Anesthesia - Nerve Block Performed Left Interscalene Single Time Out Performed: Yes Date of Procedure: 05/17/23 Procedure Start Time: Procedure Stop Time: Location of Patient: PreOp Indication: Acute Post-Operative Pain, Requested by Surgeon Sedation Type: Sedate with meaningful contact maintained Position: Supine Needle Types: Pajunk Needle Gauge: 21 Ultrasound used to visualize needle placement: Yes Ultrasound used to observe medication spread: Yes Blood Aspirated: No Pain Paresthesia on Injection Noted: No Resistance on Injection: Normal Image Stored and Saved: Yes Events: Uneventful and Well Tolerated (Ropivacaine 0.5% 20 mL plus dexamethasone 4 mg)
== END 2023-05-17 14:30 | disposition home or self-care (01) ==
LOC: OR 08:21
PROVIDERS: ATTEND Orthopaedic Surgery
DX: M75.102 Unspecified rotator cuff tear or rupture of left shoulder, not specified as traumatic (principal); Z79.899 Other long term (current) drug therapy
CPT/HCPCS: 64415; 29827; C1713; C1894; J2250; J0330; J1100; J2710; J2405; J0690; J3010; J2795; J2704; J1170; J2001